=== PATIENT | male | born 1955 | race Native Hawaiian/Other Pacific Islander ===

== ENCOUNTER 2020-08-28 10:31 | Outpatient (REF) | payer OTHER, SELFPAY ==
--- NOTE | 2020-08-28 10:39 | XR_ITS ---
EXAMINATION: XR LUMBOSACRAL SPINE CLINICAL INFORMATION: Low back pain COMPARISON: July 24, 2008 TECHNIQUE: Three views of the lumbosacral spine. FINDINGS: There are 5 [id number] lumbar vertebra. No acute fracture, spondylolisthesis, or spondylolysis is appreciated. There is mild marginal spurring seen at multiple levels as well as calcification of the anterior longitudinal ligament with bridging at the L2-L3 level and prominent spur at the L4 level. Pedicles intact. There is mild narrowing of the L5-S1 disc space. No significant sacroiliac joint abnormality appreciated. There is noted to be marginal spurring within the lower thoracic spine. IMPRESSION: 1. No acute fracture, spondylolisthesis, or spondylolysis. 2. Lumbar spondylosis as described.
[2020-08-28 11:59] LABS: Alanine Aminotransferase 30 U/L (0-40); Albumin Level 4.4 g/dL (3.5-5.0); Alkaline Phosphatase 68 U/L (39-117); Anion Gap 14 (12-20); Aspartate Amino Transferase 27 U/L (5-37); Bilirubin Total 0.6 mg/dL (0.0-1.0); Blood Urea Nitrogen 22 mg/dL (9-16); Calcium 9.5 mg/dL (8.4-10.2); Carbon Dioxide 26 mmol/L (22-29); Chloride 103 mmol/L (96-108); Estimated Glomerular Filt Rate 47; Glucose Random 210 mg/dL (60-115); Potassium 4.5 mmol/l (3.3-5.1); Sodium 138 mmol/L (135-145); Total Protein 7.3 g/dL (6.5-8.0); Uric Acid 5.8 mg/dL (3.4-7.0)
== END 2020-08-28 10:32 | disposition home or self-care (01) ==
LOC: HO.HMGCX 10:31
PROVIDERS: PCP Nurse Practitioner Family; Referring Provider Student in an Organized Health Care Education/Training Program; Visit Provider Nurse Practitioner Family
DX: M10.071 Idiopathic gout, right ankle and foot (principal); M54.5 Low back pain
CPT/HCPCS: 72100; 80053; 84550

== ENCOUNTER → 2020-09-03 07:58 | Outpatient (BNVA) | payer OTHER, SELFPAY | PROVIDERS: PCP Nurse Practitioner Family; Referring Provider Nurse Practitioner Family; Visit Provider Student in an Organized Health Care Education/Training Program | DX: M1A.0710 Idiopathic chronic gout, right ankle and foot, without tophus (tophi) (principal); M19.079 Primary osteoarthritis, unspecified ankle and foot | CPT/HCPCS: 99214 ==

== ENCOUNTER 2020-10-02 10:05 | Outpatient (REF) | payer OTHER, SELFPAY ==
[2020-10-02 11:15] LABS: MANUAL DIFF FLAG NO
[2020-10-02 11:29] LABS: Basophils Percent Auto 0.5 % (0-2); Eosinophils Absolute Auto 0.2 X10*3/uL (0.0-0.4); Eosinophils Percent Auto 2.7 % (0-4); Hematocrit 45.6 % (42-52); Imm Gran Abs Auto 0.03 X10*3/uL (0.00-0.03); Imm Gran Pct Auto 0.4 % (0.0-0.4); Lymphocytes Absolute Auto 3.3 X10*3/uL (1.2-4.9); Lymphocytes Percent Auto 39.4 % (20-40); Mean Corpuscular HGB Conc 32.9 g/dl (31.0-36.0); Mean Corpuscular Volume 91.2 fL (80-98); Mean Platelet Volume 9.8 fL (9.4-12.4); Monocytes Absolute Auto 0.8 X10*3/uL (0.1-1.2); Monocytes Percent Auto 9.5 % (2-11); Neutrophils Percent Auto 47.5 % (45-73); Platelet Count 223 X10*3/uL (160-400); White Blood Count 8.3 X10*3/uL (4.8-10.8)
[2020-10-02 12:19] LABS: TSH reflex Free T4 0.58 mIU/mL (0.32-4.0)
[2020-10-02 12:30] LABS: Alanine Aminotransferase 59 U/L (0-40); Albumin Level 4.7 g/dL (3.5-5.0); Alkaline Phosphatase 71 U/L (39-117); Anion Gap 17 (12-20); Aspartate Amino Transferase 66 U/L (5-37); Blood Urea Nitrogen 18 mg/dL (9-16); Calcium 9.8 mg/dL (8.4-10.2); Carbon Dioxide 25 mmol/L (22-29); Chloride 98 mmol/L (96-108); Estimated Glomerular Filt Rate 48; Glucose Random 164 mg/dL (60-115); Potassium 5.1 mmol/l (3.3-5.1); Sodium 135 mmol/L (135-145); Total Protein 7.9 g/dL (6.5-8.0); Uric Acid 6.6 mg/dL (3.4-7.0)
== END 2020-10-02 10:06 | disposition home or self-care (01) ==
LOC: HO.HMGCLDS 10:05
PROVIDERS: Student in an Organized Health Care Education/Training Program; PCP Nurse Practitioner Family; Visit Provider Hospitalist
DX: M1A.0710 Idiopathic chronic gout, right ankle and foot, without tophus (tophi) (principal); R79.89 Other specified abnormal findings of blood chemistry; Z20.828 Contact with and (suspected) exposure to other viral communicable diseases
CPT/HCPCS: 36415; 80053; 84443; 84550; 85025

== ENCOUNTER 2020-10-02 10:08 | Outpatient (REF) | payer OTHER, SELFPAY | END 2020-10-02 10:09 | disposition home or self-care (01) | LOC: HO.LAB 10:08 | PROVIDERS: Visit Provider Hospitalist | DX: R79.89 Other specified abnormal findings of blood chemistry (principal); Z20.828 Contact with and (suspected) exposure to other viral communicable diseases | CPT/HCPCS: U0003 ==

== ENCOUNTER 2020-10-27 12:07 | Outpatient (REF) | payer OTHER, SELFPAY ==
[2020-10-27 14:18] LABS: Glucose Urine UA >=1000 MG/DL (NEG); Leukocyte Esterase Urine NEG (NEG); Nitrite Urine NEG (NEG); Urine Blood TRACE (NEG); Urine Ketones NEG (NEG); Urine Protein NEG (NEG-TRACE)
[2020-10-27 14:23] LABS: Appearance Urine CLEAR; Color Urine YELLOW
[2020-10-27 14:26] LABS: Alanine Aminotransferase 32 U/L (0-40); Albumin Level 4.5 g/dL (3.5-5.0); Alkaline Phosphatase 73 U/L (39-117); Anion Gap 16 (12-20); Anion Gap 17 (12-20); Aspartate Amino Transferase 41 U/L (5-37); Bilirubin Total 0.5 mg/dL (0.0-1.0); Blood Urea Nitrogen 21 mg/dL (9-16); Calcium 9.4 mg/dL (8.4-10.2); Calcium 9.5 mg/dL (8.4-10.2); Carbon Dioxide 24 mmol/L (22-29); Carbon Dioxide 25 mmol/L (22-29); Chloride 100 mmol/L (96-108); Chloride 101 mmol/L (96-108); Estimated Glomerular Filt Rate 54; Estimated Glomerular Filt Rate 56; Glucose Random 237 mg/dL (60-115); Potassium 4.7 mmol/l (3.3-5.1); Potassium 4.8 mmol/l (3.3-5.1); Sodium 136 mmol/L (135-145); Sodium 137 mmol/L (135-145); Total Protein 7.7 g/dL (6.5-8.0); Uric Acid 5.3 mg/dL (3.4-7.0)
[2020-10-27 14:41] LABS: Creatinine Urine 96.73 mg/dL; Total Protein Urine Random < 7 mg/dL (<12)
[2020-10-27 14:42] LABS: RBC Urine 0-2 /HPF (0); WBC Urine 0 /HPF (0-4)
== END 2020-10-27 12:08 | disposition home or self-care (01) ==
LOC: HO.HMGCLDS 12:07
PROVIDERS: Hospitalist; PCP Nurse Practitioner Family; Visit Provider Internal Medicine Nephrology
DX: R79.89 Other specified abnormal findings of blood chemistry (principal)
CPT/HCPCS: 80051; 80053; 81001; 82310; 82565; 84156; 84520; 84550

== ENCOUNTER 2021-01-29 08:51 | Outpatient (REF) | payer OTHER, SELFPAY ==
--- NOTE | ~2021-01-29 | XR_ITS ---
EXAMINATION: XR CHEST CLINICAL INFORMATION: Cough. COMPARISON: Chest 07/07/2020. TECHNIQUE: 2 views of the chest were obtained. FINDINGS: The lungs are well expanded and clear of acute pneumonic process. There is mild right lateral pleural thickening. The heart size and pulmonary vascularity is normal. There is moderate spondylosis. No gross bony abnormality seen. XR/XR chest 2V IMPRESSION: No acute cardiopulmonary process seen. There is moderate right lateral pleural thickening. A new finding from 03/07/2020. Moderate dorsal spine spondylosis.
[2021-01-29 12:05] LABS: Estimated Average Glucose 263 mg/dL; Hemoglobin A1c % 10.8 %
[2021-01-29 12:28] LABS: Alanine Aminotransferase 36 U/L (0-40); Albumin Level 4.5 g/dL (3.5-5.0); Alkaline Phosphatase 69 U/L (39-117); Anion Gap 15 (12-20); Aspartate Amino Transferase 37 U/L (5-37); Bilirubin Total 0.9 mg/dL (0.0-1.0); Blood Urea Nitrogen 21 mg/dL (9-16); Calcium 9.9 mg/dL (8.4-10.2); Carbon Dioxide 27 mmol/L (22-29); Chloride 100 mmol/L (96-108); Cholesterol 213 mg/dL; Estimated Glomerular Filt Rate 55; Glucose Fasting 306 mg/dL (60-99); HDL Cholesterol 62 mg/dL; LDL Cholesterol Calculated 128 mg/dl; Potassium 4.4 mmol/L (3.3-5.1); Sodium 138 mmol/L (135-145); Total Protein 7.5 g/dL (6.5-8.0); Triglycerides 119 mg/dL
[2021-01-29 12:32] LABS: TSH reflex Free T4 0.53 uIU/mL (0.32-4.0)
[2021-01-29 13:34] LABS: Creatinine Urine 109.93 mg/dL; Microalbum/Creatinine Ratio Ur 45.4 ug/mg cr
== END 2021-01-29 08:52 | disposition home or self-care (01) ==
LOC: HO.HMGCX 08:51
PROVIDERS: PCP Nurse Practitioner Family; Visit Provider Nurse Practitioner Family
DX: R05 Cough (principal); E11.9 Type 2 diabetes mellitus without complications
CPT/HCPCS: 36415; 71046; 80053; 80061; 82043; 83036; 84443

== ENCOUNTER → 2021-06-11 11:18 | Outpatient (BNVA) | payer SELFPAY | PROVIDERS: Visit Provider Physician Assistant Medical | DX: Z02.79 Encounter for issue of other medical certificate (principal) ==

== ENCOUNTER 2021-07-10 13:31 | Outpatient (REF) | payer MEDICARE, MEDICAID, SELFPAY | END 2021-07-10 13:32 | disposition home or self-care (01) | LOC: HO.LNP 13:31 | PROVIDERS: Visit Provider Hospitalist | DX: Z20.822 Contact with and (suspected) exposure to COVID-19 (principal) | CPT/HCPCS: U0003; U0005 ==

== ENCOUNTER 2021-12-08 07:55 | Outpatient (REF) | payer MEDICARE, MEDICAID, SELFPAY ==
[2021-12-08 11:34] LABS: Appearance Urine CLEAR; Color Urine YELLOW; Glucose Urine UA 250 MG/DL (NEG); Leukocyte Esterase Urine NEG (NEG); Nitrite Urine NEG (NEG); Specific Gravity - Urine 1.025 (1.005-1.025); UACC Culture Trigger NO; Urine Blood TRACE (NEG); Urine Ketones NEG (NEG); Urine Protein NEG (NEG-TRACE)
[2021-12-08 11:52] LABS: Estimated Average Glucose 183 mg/dL
[2021-12-08 11:56] LABS: Alanine Aminotransferase 32 U/L (0-40); Albumin Level 4.4 g/dL (3.5-5.0); Alkaline Phosphatase 57 U/L (39-117); Anion Gap 13 (12-20); Aspartate Amino Transferase 42 U/L (5-37); Bilirubin Total 0.4 mg/dL (0.0-1.0); Blood Urea Nitrogen 24 mg/dL (9-16); Calcium 10.2 mg/dL (8.4-10.2); Carbon Dioxide 26 mmol/L (22-29); Chloride 102 mmol/L (96-108); Cholesterol 218 mg/dL; Estimated Glomerular Filt Rate 51; Glucose Fasting 216 mg/dL (60-99); HDL Cholesterol 68 mg/dL; LDL Cholesterol Calculated 131 mg/dl; Potassium 4.4 mmol/L (3.3-5.1); Sodium 137 mmol/L (135-145); Total Protein 7.7 g/dL (6.5-8.0); Triglycerides 99 mg/dL
[2021-12-08 12:05] LABS: Prostate Specific Antigen Scr 5.98 ng/mL (<0.05-4.0); TSH reflex Free T4 0.81 uIU/mL (0.32-4.0)
[2021-12-08 12:13] LABS: RBC Urine 0-2 /HPF (0); WBC Urine 0 /HPF (0-4)
== END 2021-12-08 07:56 | disposition home or self-care (01) ==
LOC: HO.HMGCLDS 07:55
PROVIDERS: PCP Nurse Practitioner Family; Visit Provider Nurse Practitioner Family
DX: E11.9 Type 2 diabetes mellitus without complications (principal); Z12.5 Encounter for screening for malignant neoplasm of prostate
CPT/HCPCS: 36415; 80053; 80061; 81001; 83036; 84153; 84443

== ENCOUNTER 2022-02-08 08:02 | Outpatient (REF) | payer MEDICARE, MEDICAID, SELFPAY ==
[2022-02-08 12:10] LABS: Alanine Aminotransferase 23 U/L (0-40); Albumin Level 4.5 g/dL (3.5-5.0); Alkaline Phosphatase 51 U/L (39-117); Anion Gap 13 (12-20); Aspartate Amino Transferase 23 U/L (5-37); Bilirubin Total 0.6 mg/dL (0.0-1.0); Blood Urea Nitrogen 22 mg/dL (9-16); Calcium 9.6 mg/dL (8.4-10.2); Carbon Dioxide 28 mmol/L (22-29); Chloride 104 mmol/L (96-108); Estimated Glomerular Filt Rate 53; Glucose Random 142 mg/dL (60-115); Potassium 4.6 mmol/L (3.3-5.1); Sodium 140 mmol/L (135-145); Total Protein 7.5 g/dL (6.5-8.0); Uric Acid 5.4 mg/dL (3.4-7.0)
== END 2022-02-08 08:03 | disposition home or self-care (01) ==
LOC: HO.HMGCLDS 08:02
PROVIDERS: Visit Provider Nurse Practitioner Family
DX: M10.9 Gout, unspecified (principal)
CPT/HCPCS: 36415; 80053; 84550

== ENCOUNTER → 2022-02-09 07:49 | Outpatient (BNVA) | payer MEDICARE, MEDICAID, SELFPAY | PROVIDERS: Visit Provider Nurse Practitioner Family | DX: M1A.0710 Idiopathic chronic gout, right ankle and foot, without tophus (tophi) (principal); M19.079 Primary osteoarthritis, unspecified ankle and foot | CPT/HCPCS: 99212 ==

== ENCOUNTER 2022-04-26 08:09 | Outpatient (REF) | payer MEDICARE, MEDICAID, SELFPAY ==
[2022-04-26 11:43] LABS: MANUAL DIFF FLAG NO
[2022-04-26 11:53] LABS: Basophils Percent Auto 0.4 % (0-2); Eosinophils Absolute Auto 0.2 X10*3/uL (0.0-0.4); Eosinophils Percent Auto 2.6 % (0-4); Hematocrit 44.6 % (42.0-52.0); Hemoglobin 14.5 g/dl (14.0-18.0); Imm Gran Abs Auto 0.02 X10*3/uL (0.00-0.03); Imm Gran Pct Auto 0.3 % (0.0-0.4); Lymphocytes Absolute Auto 2.9 X10*3/uL (1.2-4.9); Lymphocytes Percent Auto 39.6 % (20-40); Mean Corpuscular HGB Conc 32.5 g/dl (31.0-36.0); Mean Corpuscular Hemoglobin 30.4 pg (27.0-33.0); Mean Corpuscular Volume 93.5 fL (80.0-98.0); Mean Platelet Volume 10.1 fL (9.4-12.4); Monocytes Absolute Auto 0.8 X10*3/uL (0.1-1.2); Monocytes Percent Auto 10.4 % (2-11); Neutrophils Absolute Auto 3.5 x10*3/uL (2.0-8.3); Neutrophils Percent Auto 46.7 % (45-73); Platelet Count 232 X10*3/uL (160-400); Red Blood Count 4.77 X10*6/uL (4.60-5.80); Red Cell Distribution Width 13.6 % (11.0-16.0); White Blood Count 7.4 X10*3/uL (4.8-10.8)
[2022-04-26 12:13] LABS: Anion Gap 13 (12-20); Blood Urea Nitrogen 21 mg/dL (9-16); Calcium 9.5 mg/dL (8.4-10.2); Carbon Dioxide 26 mmol/L (22-29); Chloride 104 mmol/L (96-108); Estimated Glomerular Filt Rate 56; Iron 86 mcg/dL (45-160); Percent Iron Saturation 24 % (15-50); Potassium 4.7 mmol/L (3.3-5.1); Sodium 138 mmol/L (135-145); Total Iron Binding Capacity 358 mcg/dL (228-428); Unsaturated Iron Binding 272 ug/dL
[2022-04-26 12:16] LABS: Appearance Urine CLEAR; Color Urine YELLOW; Glucose Urine UA NEG (NEG); Leukocyte Esterase Urine NEG (NEG); Nitrite Urine NEG (NEG); Specific Gravity - Urine 1.025 (1.005-1.025); UACC Culture Trigger NO; Urine Blood 1+ (NEG); Urine Ketones NEG (NEG); Urine Protein NEG (NEG-TRACE)
[2022-04-26 12:44] LABS: Total Protein Urine Random 16 mg/dL (<12)
[2022-04-26 12:56] LABS: WBC Urine 0 /HPF (0-4)
[2022-04-26 12:57] LABS: Mucus Urine 1+ /LPF
== END 2022-04-26 08:10 | disposition home or self-care (01) ==
LOC: HO.HMGCLDS 08:09
PROVIDERS: PCP Nurse Practitioner Family; Visit Provider Internal Medicine Nephrology
DX: N17.9 Acute kidney failure, unspecified (principal); I10 Essential (primary) hypertension
CPT/HCPCS: 36415; 80051; 81001; 81003; 82310; 82565; 83540; 84156; 84520; 85025

== ENCOUNTER → 2022-08-09 09:02 | Outpatient (BNVA) | payer MEDICARE, MEDICAID, SELFPAY | PROVIDERS: PCP Nurse Practitioner Family; Visit Provider Nurse Practitioner Family | DX: M1A.0710 Idiopathic chronic gout, right ankle and foot, without tophus (tophi) (principal); M19.079 Primary osteoarthritis, unspecified ankle and foot; M25.562 Pain in left knee; M54.50 Low back pain, unspecified | CPT/HCPCS: 99212 ==

== ENCOUNTER 2022-11-22 09:41 | Outpatient (REF) | payer MEDICARE, MEDICAID, SELFPAY ==
[2022-11-22 17:38] LABS: Urine Cytology See Pathology rpt
== END 2022-11-22 09:42 | disposition home or self-care (01) ==
LOC: HO.LAB 09:41
PROVIDERS: PCP Nurse Practitioner Family; Visit Provider Urology
DX: R31.29 Other microscopic hematuria (principal); R97.20 Elevated prostate specific antigen [PSA]; N32.0 Bladder-neck obstruction
CPT/HCPCS: 88112; 99202

== ENCOUNTER 2022-12-20 07:26 | Outpatient (REF) | payer MEDICARE, MEDICAID, SELFPAY ==
[2022-12-20 07:40] VITALS: BMI 35.6
[2022-12-20 07:41] VITALS: BP 126/67; PULSE 76; RESP 16; TEMP 36.2; O2SAT 98
--- NOTE | 2022-12-20 08:30 | W.PM.OPN ---
Operative Note Operative Note Date of Service: 12/20/22 Narrative: Preoperative diagnosis: Elevated PSA Postoperative diagnosis: Elevated PSA Procedure: 1. transrectal ultrasound measurement of prostate 2. transrectal ultrasound-guided pudendal nerve block 3. transrectal ultrasound-guided prostate biopsy 12 core Surgeon: Dr. Leroy Hale Anesthetic: Local Indications for procedure: Elevated PSA 5.9 Procedure: After informed consent was verified, the patient was brought into the procedure area and lay left-hand side down on the table. Patient identity confirmed. Perioperative antibiotics confirmed. Safety pause time out performed. LUIS CARLOS performed to dilate rectal sphincter Iodine 10cc with Gel was placed per rectum Ultrasound probe was placed per rectum The prostate was measured in 3 dimensions Total volume equals 40 gm No cystic structures were noted calcifications were noted at the surgical margin The prostate was otherwise homogeneous in nature An ultrasound-guided pudendal nerve block was performed using 10 cc of 1% lidocaine. 8 cc was placed at the base and 2 cc of the apex. A 12 core biopsy was performed with 6 cores each side. Two cores were taken at the apex, mid and base. Cores were spaced between lateral and medial. He tolerated the procedure well. Was able to ambulate to bathroom after 5 minutes. Printed instructions regarding antibiotic use and common side effects such as low-grade temperature, potential infection and bleeding were given Pathology: 12 core prostate biopsy.
[2022-12-20 08:51] VITALS: BP 127/74; PULSE 92; RESP 16; O2SAT 97
== END 2022-12-20 07:27 | disposition home or self-care (01) ==
LOC: HO.MS 07:26
PROVIDERS: PCP Nurse Practitioner Family; Visit Provider Urology
PROC: (CPT 55700; principal; 2022-12-20 08:00)
DX: R97.20 Elevated prostate specific antigen [PSA] (principal); C61 Malignant neoplasm of prostate; N42.31 Prostatic intraepithelial neoplasia
CPT/HCPCS: 55700; 76942; 88305; 88344

== ENCOUNTER → 2022-12-27 11:13 | Outpatient (BNVA) | payer MEDICARE, MEDICAID, SELFPAY | PROVIDERS: PCP Nurse Practitioner Family; Visit Provider Urology | DX: N39.0 Urinary tract infection, site not specified (principal); C61 Malignant neoplasm of prostate | CPT/HCPCS: Q3014 ==

== ENCOUNTER → 2023-01-16 10:44 | Outpatient (REF) | payer MEDICARE, MEDICAID, SELFPAY ==
--- NOTE | ~2023-01-16 | NM_ITS ---
EXAMINATION: NM BONE SCAN OF THE WHOLE BODY CLINICAL INFORMATION: Prostate cancer. Evaluate for bone metastasis. COMPARISON: Chest x-ray 01/29/2021 TECHNIQUE: Multiple gamma scintillation camera images of the whole body were performed 3 hours following the intravenous administration of 38 mCi Tc-99m MDP. FINDINGS: In the head, no abnormal activity seen. In the thoracic cage and upper extremities, mild degenerative changes bilateral supraclavicular joints. No additional abnormal activity seen in thoracic cage or upper extremities. In the spine, there is mild increased activity seen along the costovertebral junctions slightly greater on the right side from T4 through T11 vertebrae on the right and left T8 and T9 vertebrae. In the pelvis, no abnormal activity seen. In the lower extremities, there is focal increased activity seen in the left mid tibia, likely a stress fracture. Mild increased activity seen in bilateral ankle joints likely degenerative arthritis. No other definite bony abnormalities are noted. The urinary bladder and faint visualization of both kidneys are noted. NM/NM bone scan whole body IMPRESSION: No abnormal metabolic activity seen to suspect any metastatic bone disease. Mild degenerative arthritic changes bilateral ankles and AC joints. Likely stress fracture left mid tibia. Moderate spondylosis mid dorsal spine.
== END ==
LOC: HO.NUCMED 10:44
PROVIDERS: PCP Nurse Practitioner Family; Visit Provider Urology
DX: C61 Malignant neoplasm of prostate (principal); C79.51 Secondary malignant neoplasm of bone; N39.0 Urinary tract infection, site not specified
CPT/HCPCS: 78306; A9503

== ENCOUNTER 2023-01-25 09:02 | Outpatient (REF) | payer MEDICARE, MEDICAID, SELFPAY ==
[2023-01-25 11:59] LABS: Blood Urea Nitrogen 16 mg/dL (9-16); Estimated Glomerular Filt Rate 57
== END 2023-01-25 09:03 | disposition home or self-care (01) ==
LOC: HO.HMGCLDS 09:02
PROVIDERS: PCP Nurse Practitioner Family; Visit Provider Nurse Practitioner Family
DX: M1A.0710 Idiopathic chronic gout, right ankle and foot, without tophus (tophi) (principal)
CPT/HCPCS: 36415; 82565; 84520; 84550

== ENCOUNTER → 2023-01-27 09:10 | Outpatient (BNVA) | payer MEDICARE, MEDICAID, SELFPAY | PROVIDERS: PCP Nurse Practitioner Family; Visit Provider Nurse Practitioner Family | DX: M1A.0710 Idiopathic chronic gout, right ankle and foot, without tophus (tophi) (principal); M19.079 Primary osteoarthritis, unspecified ankle and foot | CPT/HCPCS: 99212 ==

== ENCOUNTER → 2023-02-15 14:30 | Outpatient (BNVA) | payer MEDICARE, MEDICAID, SELFPAY | PROVIDERS: PCP Nurse Practitioner Family; Visit Provider Urology | DX: C61 Malignant neoplasm of prostate (principal); N40.1 Benign prostatic hyperplasia with lower urinary tract symptoms; N13.8 Other obstructive and reflux uropathy | CPT/HCPCS: 99212 ==

== ENCOUNTER 2023-02-28 08:06 | Outpatient (REF) | payer MEDICARE, MEDICAID, SELFPAY ==
--- NOTE | ~2023-02-28 | XR_ITS ---
EXAMINATION: XR FOOT, RIGHT CLINICAL INFORMATION: Pain in the right foot COMPARISON: X-ray of the right foot/toes 05/13/2020 TECHNIQUE: AP, lateral, and oblique views of the right foot. FINDINGS: First Metatarsophalangeal Joint: There is mild hallux valgus. Small marginal osteophytes involving the 1st metatarsophalangeal joint and hallux sesamoid joints. This is not significantly changed. The remaining bones, joints soft tissues are unremarkable. XR/XR foot RT 2V IMPRESSION: Mild degenerative changes of the 1st metatarsophalangeal joint, unchanged.
== END 2023-02-28 08:07 | disposition home or self-care (01) ==
LOC: HO.XRAY 08:06
PROVIDERS: PCP Nurse Practitioner Family; Visit Provider Nurse Practitioner Family
DX: M79.671 Pain in right foot (principal)
CPT/HCPCS: 73620

== ENCOUNTER → 2023-03-01 09:03 | Outpatient (BNVA) | payer MEDICARE, MEDICAID, SELFPAY | PROVIDERS: PCP Nurse Practitioner Family; Visit Provider Nurse Practitioner Family | DX: M1A.0710 Idiopathic chronic gout, right ankle and foot, without tophus (tophi) (principal); M19.071 Primary osteoarthritis, right ankle and foot | CPT/HCPCS: 99212 ==

== ENCOUNTER → 2023-03-22 14:39 | Outpatient (BNVA) | payer MEDICARE, MEDICAID, SELFPAY | PROVIDERS: PCP Nurse Practitioner Family; Visit Provider Urology | DX: C61 Malignant neoplasm of prostate (principal) | CPT/HCPCS: 96402; 99212; J9217 ==

== ENCOUNTER 2023-06-05 05:55 | Day surgery (SDC) | payer MEDICARE, MEDICAID, SELFPAY ==
[2023-05-31 11:47] VITALS: BMI 45.7
--- NOTE | 2023-06-02 10:14 | P.CONAN_ITS ---
Documented by User: Alanna Ceballos NP 06/02/23 10:14 HPI - Anesthesia Eval Consult details Narrative: 68yo M for Visicoil Insertion, Space OAR PMFSH Active Problems Active Problems: All Active Problems (Updated 02/15/23 @ 15:24 by Leroy Hale MD) Prostate cancer (Acute) Complicated urinary tract infection (Acute) Bladder outlet obstruction (Acute) Physical exam (Acute) Elevated PSA (Acute) Exposure to COVID-19 virus (Acute) Pleural thickening (Acute) Screening PSA (prostate specific antigen) (Acute) Diabetes (Acute) Cough (Acute) Elevated fasting blood sugar (Acute) Viral syndrome (Acute) Encounter for screening laboratory testing for COVID-19 virus (Acute) Dizziness (Acute) Arthritis of first MTP joint (Acute) Gout of right foot (Acute) Elevated serum creatinine (Acute) Lower back pain (Acute) Right hip pain (Acute) Past Medical History Medical History (Updated 06/05/23 @ 07:22 by Joselin Oneill MD) DAKOTA (acute kidney injury) Anxiety Arthritis of first MTP joint C. difficile diarrhea COVID-19 Elevated serum creatinine GERD (gastroesophageal reflux disease) Gout of right foot HTN (hypertension) Lower back pain JACINDA (obstructive sleep apnea) Family History Family History Father No problems noted. Mother No problems noted. Sister Cancer Sister No problems noted. Brother Diabetes mellitus Brother No problems noted. Brother No problems noted. Brother No problems noted. Brother No problems noted. Daughter No problems noted. Son No problems noted. Son No problems noted. Surgical History Surgical History (Updated 06/05/23 @ 07:26 by Joselin Oneill MD) H/O inguinal hernia repair History of hernia repair Hx of umbilical hernia repair Social History Social History Household Members: Spouse Housing: House Alcohol intake: current Alcohol intake frequency: holidays/special occasions only Alcohol type: hard liquor Patient Tobacco Use Status: Former Tobacco user Years Smoked: 20 yrs e-Cigarette/Vaping Use: Never Used Second Hand Smoke Exposure: No Use of substances other than those prescribed or required for medical reasons: No Are you DNR?: No Advance Directives: No Advance Directives Information Provided: Yes service: No Current occupational status: retired Cognitive needs: No Hearing needs: No Vision needs: No Meds Allergies Allergy/AdvReac Type Severity Reaction Status Date / Time No Known Allergies Allergy Verified 03/22/23 15:36 [No Known Allergies*] Home Medications Medication Instructions Recorded Confirmed Last Taken Type indomethacin 50 mg capsule 50 mg PO TID PRN Pain 02/09/22 06/05/23 Unknown History Exam Exam Date and Time: June 02, 2023 1014 Height,Weight and Vital Signs: Height 5 ft 1 in Weight 109.769 kg Pertinent Lab Results Pertinent Lab Results: Laboratory Tests 01/25/23 09:07 BUN 16 Creatinine 1.26 Assessment and Plan Assessment Anesthesia Assessment: Chart Reviewed Documented by User: Joselin Oneill MD 06/05/23 07:30 [facility] Active Problems Active Problems: All Active Problems (Updated 06/05/23 @ 07:00 by Joselin Oneill MD) Prostate cancer (Acute) Complicated urinary tract infection (Acute) Bladder outlet obstruction (Acute) Physical exam (Acute) Elevated PSA (Acute) Exposure to COVID-19 virus (Acute) Pleural thickening (Acute) Screening PSA (prostate specific antigen) (Acute) Diabetes (Acute) Cough (Acute) Elevated fasting blood sugar (Acute) Viral syndrome (Acute) Encounter for screening laboratory testing for COVID-19 virus (Acute) Dizziness (Acute) Arthritis of first MTP joint (Acute) Gout of right foot (Acute) Elevated serum creatinine (Acute) Lower back pain (Acute) Right hip pain (Acute) Past Medical History Medical History (Updated 06/05/23 @ 07:22 by Joselin Oneill MD) DAKOTA (acute kidney injury) Anxiety Arthritis of first MTP joint C. difficile diarrhea COVID-19 Elevated serum creatinine GERD (gastroesophageal reflux disease) Gout of right foot HTN (hypertension) Lower back pain JACINDA (obstructive sleep apnea) Family History Family History Father No problems noted. Mother No problems noted. Sister Cancer Sister No problems noted. Brother Diabetes mellitus Brother No problems noted. Brother No problems noted. Brother No problems noted. Brother No problems noted. Daughter No problems noted. Son No problems noted. Son No problems noted. Family history of problems with anesthesia: No Surgical History Surgical History (Updated 06/05/23 @ 07:26 by Joselin Oneill MD) H/O inguinal hernia repair History of hernia repair Hx of umbilical hernia repair History of Problems with Anesthesia: No Social History Social History Household Members: Spouse Housing: House Alcohol intake: current Alcohol intake frequency: holidays/special occasions on ly Alcohol type: hard liquor Patient Tobacco Use Status: Former Tobacco user Years Smoked: 20 yrs e-Cigarette/Vaping Use: Never Used Second Hand Smoke Exposure: No Use of substances other than those prescribed or required for medical reasons: No Are you DNR?: No Advance Directives: No Advance Directives Information Provided: Yes service: No Current occupational status: retired Cognitive needs: No Hearing needs: No Vision needs: No Meds Allergies Allergy/AdvReac Type Severity Reaction Status Date / Time No Known Allergies Allergy Verified 03/22/23 15:36 [No Known Allergies*] Home Medications Medication Instructions Recorded Confirmed Last Taken Type indomethacin 50 mg capsule 50 mg PO TID PRN Pain 02/09/22 06/05/23 Unknown History Exam Height,Weight and Vital Signs: Height 5 ft 1 in Weight 109.769 kg Vital Signs Temp Pulse Resp BP Pulse Ox O2 Del Method 06/05/23 06:50 97.0 F 72 18 114/64 95 Room Air Pertinent Lab Results Pertinent Lab Results: Laboratory Tests 01/25/23 09:07 BUN 16 Creatinine 1.26 Lab Results 06/05/23 Range/Units 06:42 POC Glucose 147 H (60-115) mg/dL Airway Mallampati Class: III TM Dist: >3cm Neck ROM: Full Partial: Upper Loose/Missing/Broken Teeth: Yes (Many missing and some broken bottom) Heart: RRR Lungs: CTAB Assessment and Plan Assessment Anesthesia Assessment: Anesthesia Plan Discussed Final Anesthetic Review Family History of Problems with Anesthesia: No History of Problems with Anesthesia: No NPO: Yes ASA Class: III Final Preanesthetic Review: No Changes in Pt Med Stat, Meds/Allgs Chart Reviewed, Consent Obtained/Reviewed and Anes Risks/Benef Reviewed Patient Risk: Intermediate Procedure Risk: Low Assessment/Block/Sedation in SS: Assess/Block/Sedation-SS Anesthetic Plan Anesthetic Plan: GA Disposition: Standard PACU
[2023-06-05 06:44] VITALS: BMI 34.9
[2023-06-05 06:49] LABS: Glucose, Whole Blood 147 mg/dL (60-115)
[2023-06-05 06:50] VITALS: BP 114/64; PULSE 72; RESP 18; TEMP 36.1; O2SAT 95
[2023-06-05] MEDS: Lactated Ringers 1,000 ML 100 ML IVCONT (06:54)
--- NOTE | 2023-06-05 07:42 | MHC.SHP ---
Pre-Procedural Eval Section A Date of Service: 06/05/23 The patient is an INPATIENT: No Changes since office visit: No Cold of Flu in the past 2 weeks, No New Medical Problems, No Changes in Medication and No Patient answered all questions The History & Physical has been completed within 30 days and I have reviewed it.: No Section B Chief Complaint: Malignant neoplasm of prostate Relevant Social History: None Present Medications: see Short Stay Collaborative assessment Medical History: No relevant PMH History of Previous Operations: No relevant previous surgery Allergies: Allergies Allergy/AdvReac Type Severity Reaction Status Date / Time No Known Allergies Allergy Verified 03/22/23 15:36 [No Known Allergies*] Review of Systems Sugical H&P ROS: Negative: Constitution, Cardiovascular, Respiratory, Neurological, Psychiatric, Hem-Onc, Allergic/Immunologic, Gastrointestinal, Genitourinary, Musculoskeletal, Integumentary, Endocrine and Eyes/Ears/Nose/Throat Exam Surgical H&P Exam: Normal: HEENT, Normal: Heart, Normal: Lungs, Normal: Extremities, Normal: Abdomen, Normal: Skin and Normal: Neurological Plan Diagnosis/Plan: Unchanged (prostate cancer space oar placement) I have reviewed the history and physical and performed a pertinent physical examination on my patient. No changes have occurred unless specified. Time Spent With Patient Time: Total time managing care of this patient today ____ minutes.
[2023-06-05 08:34] VITALS: BP 106/65; PULSE 65; RESP 16; TEMP 36.4; O2SAT 96
[2023-06-05 08:39] VITALS: BP 103/69; PULSE 69; RESP 16; O2SAT 96
--- NOTE | 2023-06-05 08:43 | P.OP_ITS ---
Operative Note Operative Note Date of Service: 06/05/23 Narrative: Preoperative diagnosis: Prostate cancer Postoperative diagnosis: Prostate cancer Procedure: 1. Transrectal ultrasound-guided perineal visicoil marker seed placement 2. Transrectal ultrasound-guided perineal SpaceOAR gel placement Surgeon: Dr. Leroy Hale Anesthetic: Sedation Indications for procedure: Prostate Cancer Procedure: After informed consent was verified, the patient was brought into the operating room and anesthesia was performed per protocol. The patient was placed in a modified dorsal lithotomy position. Gel was placed per rectum Ultrasound probe was placed per rectum. The prostate was visualized in sagittal and transverse dimensions. Local anesthetic was infiltrated in the perineal area using 10 cc of lidocaine Visicoil seed markers were placed in a transperineal fashion using ultrasound guidance 1 on the right - 1 toward mid gland. 1 on the left at mid gland. The purpose is for target triangulation. The 2nd part of the procedure was placement of SpaceOAR gel to allow consolidation for radiation delivery. The kit was prepared on the backtable with assembly of the 2 part solution and syringe delivery system. The delivery needle was advanced bevel down in the midline under ultrasound guidance to the apex of the prostate. It was advanced in the plane the prostate from the rectum to the midpoint of the prostate. Location was determined using sagittal and transverse imaging. At the midpoint of the prostate 1 cc of saline was placed to confirm needle position. Further injection saline was placed to confirm spread toward the base of the prostate. Position was confirmed and needle confirmed to be free from tenting of the rectum. With the needle in the confirmed position 10 cc of gel mixture was injected. This was perfformed over a target time of 15-20 seconds to allow for adequate sp read.. Good separation was seen of the rectum from the prostate space running in the midline from the base toward the apex of the prostate. Following completion of the procedure the probe was removed from the rectum. He tolerated the procedure well. He was extubated in the operating room and transferred in stable condition to the recovery area. Pathology none Drains none
[2023-06-05 08:44] VITALS: BP 113/73; PULSE 67; RESP 16; O2SAT 96
[2023-06-05 08:49] VITALS: BP 111/75; PULSE 62; RESP 16; O2SAT 96
[2023-06-05] MEDS: Acetaminophen 325 MG TABLET 975 MG PO (08:58)
[2023-06-05 09:04] VITALS: BP 113/68; PULSE 62; RESP 18; TEMP 36.2; O2SAT 98
== END 2023-06-05 09:40 | disposition home or self-care (01) ==
PROVIDERS: PCP Nurse Practitioner Family; Visit Provider Urology
PROC: (CPT 55876; principal; 2023-06-05 07:30)
PROC: (CPT 55876; 2023-06-05 07:30)
DX: C61 Malignant neoplasm of prostate (principal); I10 Essential (primary) hypertension
CPT/HCPCS: 55876; 55874; 82947; A4648; C1889; J1100; J1956; J2250; J2405; J3010

== ENCOUNTER → 2023-06-05 05:55 | Outpatient (BNV) | payer MEDICARE, MEDICAID, SELFPAY | PROVIDERS: PCP Nurse Practitioner Family; Visit Provider Urology | DX: C61 Malignant neoplasm of prostate (principal) | CPT/HCPCS: 55874; 55876 ==

== ENCOUNTER 2023-07-07 14:15 | Outpatient (AMB) | payer MEDICARE, MEDICAID, SELFPAY ==
--- NOTE | 2023-07-07 14:22 | A.OFFVIS_ITS ---
Intake Intake Visit Reasons: 3 month (space oar+gold seed) Intake Note: Patient presents today for a follow-up Post Op: Meds- Finasteride & Terasozin Allergies to Antibiotic- No Known Allergies Blood Thinner- None Field Support Rep Required: No Accompanied by: Self / Same As Patient Allergies No Known Allergies [No Known Allergies*] Allergy (Verified 03/22/23 15:36) PFSH Medical History DAKOTA (acute kidney injury) Anxiety Arthritis of first MTP joint C. difficile diarrhea COVID-19 Elevated serum creatinine GERD (gastroesophageal reflux disease) Gout of right foot HTN (hypertension) Lower back pain JACINDA (obstructive sleep apnea) Surgical History H/O inguinal hernia repair History of hernia repair Hx of umbilical hernia repair Family History Father No problems noted. Mother No problems noted. Sister Cancer Sister No problems noted. Brother Diabetes mellitus Brother No problems noted. Brother No problems noted. Brother No problems noted. Brother No problems noted. Daughter No problems noted. Son No problems noted. Son No problems noted. Social History Household Members: Spouse Housing: House Alcohol intake: current Alcohol intake frequency: holidays/special occasions only Alcohol type: hard liquor Patient Tobacco Use Status: Former Tobacco user Years Smoked: 20 yrs e-Cigarette/Vaping Use: Never Used Second Hand Smoke Exposure: No service: No Current occupational status: retired Cognitive needs: No Hearing needs: No Vision needs: No Coding Diagnoses
--- NOTE | 2023-07-07 14:29 | MHC.OFFVIS ---
Intake Intake Visit Reasons: 3 month (space oar+gold seed) Allergies No Known Allergies [No Known Allergies*] Allergy (Verified 03/22/23 15:36) HPI HPI Comments History of Present Illness Details Leonor very pleasant [place] male. He is a patient of Dr. Ward. He is seen for the following urologic conditions - prostate cancer - lower urinary tract symptoms Prior SpaceOAR placed Starting to have ED tadalafil given 3 month f/u Radiation planned starting this week Encouraged fluids Lower urinary tract symptoms Urgency and frequency Nocturia x3 Progressive LUIS CARLOS nodule right apex Prostate Cancer - unfavorable intermediate, low volume, clinically localized GnRH 04/04 PSA 2018 5.4 prior negative biopsy, 12/05 5.9 01/05 - 4+3=7 (right mid medial 15%, right apex medial 70%) 3+4=7 (left apex medial 30%) 3+3=6 (left mid medial 5%) Tumor quantitation: Number cores positive: 4 Total number of cores: 12 % of tissue involved: 10% of all tissue examined Periprostatic fat inv.:Not dalia ntified Seminal vesicle inv.: Not identified Perineural inv.: Present LVI: Not identified Staging - 02/02 MRI PI-RADS 4 right apical 1 cm lesion, no evidence ARLEEN - 02/02 bone scan negative PFSH Medical History DAKOTA (acute kidney injury) Anxiety Arthritis of first MTP joint C. difficile diarrhea COVID-19 Elevated serum creatinine GERD (gastroesophageal reflux disease) Gout of right foot HTN (hypertension) Lower back pain JACINDA (obstructive sleep apnea) Surgical History H/O inguinal hernia repair History of hernia repair Hx of umbilical hernia repair Family History Father No problems noted. Mother No problems noted. Sister Cancer Sister No problems noted. Brother Diabetes mellitus Brother No problems noted. Brother No problems noted. Brother No problems noted. Brother No problems noted. Daughter No problems noted. Son No problems noted. Son No problems noted. Social History Household Members: Spouse Housing: House Alcohol intake: current Alcohol intake frequency: holidays/special occasions only Alcohol type: hard liquor Patient Tobacco Use Status: Former Tobacco user Years Smoked: 20 yrs e-Cigarette/Vaping Use: Never Used Second Hand Smoke Exposure: No service: No Current occupational status: retired Cognitive needs: No Hearing needs: No Vision needs: No Review of Systems Const Denies chills and Denies fever(s) Card Reports no additional complaints and Denies syncope Resp Denies cough GI Denies abdominal pain and Denies heartburn Reports as per HPI and Denies change in libido Neuro Denies syncope Psych Denies change in libido Endo Denies change in libido Physical Exam Const General: cooperative, healthy appearing, comfortable and no acute distress Orientation/consciousness: patient oriented x3 HEENT Face and sinus: Yes normal facial exam Mouth: moist mucous membranes Neck Neck: Yes normal visual inspection, Yes full ROM and Yes trachea midline Chest Chest palpation & inspection: normal inspection of the chest Resp Effort & Inspection: normal respiratory effort, able to speak in complete sentences and no respiratory distress GI Inspection: Yes normal to inspection Back/Spine/Pelvis Cervical Spine: normal cervical lordosis Thoracic/Lumbar Spine: thoracic and lumbar spine normal to inspection Skin General skin exam: no rashes or lesions noted Neuro General: patient oriented x3, gait normal, tone normal and moves all extremities Extrem General: Yes normal to inspection and Yes capillary refill normal Assessment & Plan Assessment & Plan (1) Prostate cancer: Comment: 01/05 Gl 4+3, unfavorable intermediate, clinically localized Code(s): C61 - Malignant neoplasm of prostate (2) Erectile dysfunction: Code(s): N52.9 - Male erectile dysfunction, unspecified Plan Three month follow-up Medications: New tadalafil 5 mg PO DAILY 90 tabs 1RF sexual activity 90 days N52.01 - Erectile dysfunction due to arterial insufficiency, N52.9 - Male erectile dysfunction, unspecified Patient Instructions: Imaging studies, laboratory and physical exam results were discussed and reviewed in detail. No major barriers to patient understanding were identified. An opportunity to ask questions regarding the treatment plan was provided. All questions were answered. The patient expressed understanding and agreement with the above treatment plan. The patient is aware they should contact our office by phone for worsening of their current condition or the appearance of new urologic symptoms. Compliance is encouraged with any medications and followup testing that is ordered. It is a privilege to participate in the urologic care of your patient. If you have any questions or concerns regarding treatment for the above conditions, or other urologic issues, please do not hesitate to contact me. The office telephone contact is [phone]. This note is constructed using voice recognition software. While every effort has been made to ensure accuracy order selector errors may have been included. Yours sincerely, Dr Leroy Hale MD, [facility] - Urology Providers of Expert, Compassionate Care for the Genitourinary System Coding Level of Care Code Est Pt Level 4 (84049) Diagnoses Prostate cancer C61 Erectile dysfunction N52.9
== END 2023-07-07 14:30 | disposition home or self-care (01) ==
PROVIDERS: PCP Nurse Practitioner Family; Visit Provider Urology
DX: C61 Malignant neoplasm of prostate (principal); N52.9 Male erectile dysfunction, unspecified; Z13.89 Encounter for screening for other disorder
CPT/HCPCS: 99214

== ENCOUNTER → 2023-07-07 14:15 | Outpatient (BNVA) | payer MEDICARE, MEDICAID, SELFPAY | PROVIDERS: Visit Provider Urology | DX: C61 Malignant neoplasm of prostate (principal); N52.9 Male erectile dysfunction, unspecified | CPT/HCPCS: 81003; 99212 ==

== ENCOUNTER 2023-10-11 11:10 | Outpatient (AMB) | payer MEDICARE, MEDICAID, SELFPAY ==
--- NOTE | 2023-10-11 11:10 | A.OFFVIS_ITS ---
Intake Intake Visit Reasons: 3m follow up Intake Note: Patient is present for Follow Up Urology Med:Finasteride, Terazosin Antibiotic Allergy: None Blood Thinner: None Computer Hardware Engineer Required: No Accompanied by: Self / Same As Patient Allergies No Known Allergies [No Known Allergies*] Allergy (Verified 10/11/23 11:11) HPI HPI Comments History of Present Illness Details Leonor very pleasant Guyanese male. He is a patient of Dr. Ward. He is seen for the following urologic conditions - prostate cancer - lower urinary tract symptoms - erectile dysfunction Three month follow-up labs Does have some urgency frequency Continue with finasteride, terazosin, tadalafil Lower urinary tract symptoms Urgency and frequency Nocturia x3 Progressive Prostate Cancer - unfavorable intermediate, low volume, clinically localized, Grade Group 3, GnRH 04/04 PSA 2018 5.4 prior negative biopsy, 12/05 5.9 06/04 EXBRT with GnRH with Space Oar 01/05 - 4+3=7 (right mid medial 15%, righ t apex medial 70%) 3+4=7 (left apex medial 30%) 3+3=6 (left mid medial 5%) Tumor quantitation: Number cores positive: 4 Total number of cores: 12 % of tissue involved: 10% of all tissue examined Periprostatic fat inv.:Not dalia ntified Seminal vesicle inv.: Not identified Perineural inv.: Present LVI: Not identified Staging - 02/02 MRI PI-RADS 4 right apical 1 cm l esion, no evidence ARLEEN - 02/02 bone scan negative Erectile Dysfunction PFSH Medical History DAKOTA (acute kidney injury) Anxiety Arthritis of first MTP joint C. difficile diarrhea COVID-19 Elevated serum creatinine GERD (gastroesophageal reflux disease) Gout of right foot HTN (hypertension) Lower back pain JACINDA (obstructive sleep apnea) Surgical History H/O inguinal hernia repair History of hernia repair Hx of umbilical hernia repair Family History Father No problems noted. Mother No problems noted. Sister Cancer Sister No problems noted. Brother Diabetes mellitus Brother No problems noted. Brother No problems noted. Brother No problems noted. Brother No problems noted. Daughter No problems noted. Son No problems noted. Son No problems noted. Social History Household Members: Spouse Housing: House Alcohol intake: current Alcohol intake frequency: holidays/special occasions only Alcohol type: hard liquor Patient Tobacco Use Status: Former Tobacco user Years Smoked: 20 yrs e-Cigarette/Vaping Use: Never Used Second Hand Smoke Exposure: No service: No Current occupational status: retired Cognitive needs: No Hearing needs: No Vision needs: No Review of Systems Const All systems reviewed & are unremarkable except as noted in HPI and below Reports no additional complaints Resp Reports no additional complaints GI Reports no additional complaints Reports as per HPI Musc Reports no additional complaints Physical Exam Telemedicine evaluation Appropriate responses Regular breathing rate and rhythm HEENT Head: Yes normal to inspection Ears: hearing grossly normal bilaterally Eyes General: appearance normal, both eyes and all related structures Neck Neck: Yes normal visual inspection Chest Chest palpation & inspection: normal inspection of the chest Resp Effort & Inspection: normal respiratory effort and able to speak in complete sentences Assessment & Plan Assessment & Plan (1) Prostate cancer: Comment: 01/05 Gl 4+3, unfavorable intermediate, clinically localized Code(s): C61 - Malignant neoplasm of prostate (2) Erectile dysfunction: Code(s): N52.9 - Male erectile dysfunction, unspecified Qualifiers: Erectile dysfunction type: vasculogenic Vasculogenic erectile dysfunction 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 No major barriers to patient understanding were identified. An opportunity to ask questions regarding the treatment plan was provided. All questions were answered. The patient expressed understanding and agreement with the above treatment plan. The patient is aware they should contact our office by phone for worsening of their current condition or the appearance of new urologic symptoms. Compliance is encouraged with any medications and followup testing that is ordered. It is a privilege to participate in the urologic care of your patient. If you have any questions or concerns regarding treatment for the above conditions, or other urologic issues, please do not hesitate to contact me. The office teleph one contact is [phone]. This note is constructed using voice recognition software. While every effort has been made to ensure accuracy senior clinical study manager errors may have been included. Yours sincerely, Dr Leroy Hale MD, [facility] - Urology Providers of Expert, Compassionate Care for the Genitourinary System Telehealth Telehealth Location of provider rendering services: practice address Location of patient: address on file Patient Identification confirmed using: Name, : Yes Telehealth method: voice only Patient verbally consented to treatment: Yes Patient verbally consented to billing insurance company: Yes Patient informed of any privacy concerns related to visit: Yes Coding Level of Care Code Tele Est Pt Level 3 (50223) Diagnoses Prostate cancer C61 Combined arterial insufficiency and corporo-venous occlusive erectile dysfunction N52.03 Erectile dysfunction type: vasculogenic Vasculogenic erectile dysfunction 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
== END 2023-10-11 11:52 | disposition home or self-care (01) ==
LOC: HO.HUSH 11:10
PROVIDERS: PCP Nurse Practitioner Family; Visit Provider Urology
DX: C61 Malignant neoplasm of prostate (principal); N52.03 Combined arterial insufficiency and corporo-venous occlusive erectile dysfunction
CPT/HCPCS: 99442

== ENCOUNTER → 2023-10-11 11:10 | Outpatient (BNVA) | payer MEDICARE, MEDICAID, SELFPAY | PROVIDERS: PCP Nurse Practitioner Family; Visit Provider Urology ==

== ENCOUNTER 2023-10-17 13:28 | Outpatient (AMB) | payer MEDICARE, MEDICAID, SELFPAY ==
--- NOTE | 2023-10-17 13:29 | A.OFFVIS_ITS ---
Intake Vital Signs 10/17/23 13:31 Height 5 ft 11 in Weight 253 lb BMI 35.3 BP 110/78 Blood Pressure Location Rt brachial Position Sitting Pulse 72 Pulse Source Pulse Oximeter Pulse Oximetry (%) 96 Oxygen Delivery Method Room Air Intake Visit Reasons: awv Allergies No Known Allergies [No Known Allergies*] Allergy (Verified 10/11/23 11:11) Medication List - Last Reconciled 10/17/23 by KEISHA Lezama-FÉLIX alcohol swabs 1 pad topical BID allopurinol 300 mg PO DAILY alprazolam 1 mg PO BID PRN 4 days atorvastatin 10 mg PO BEDTIME 100 days blood sugar diagnostic ([employer] Verio test strips) TID testing blood-glucose meter ([employer] Verio Meter) TID testing colchicine 0.6 mg PO DAILY 30 days finasteride 5 mg PO DAILY 90 days indomethacin 50 mg PO TID PRN lancets ([employer] Delica Lancets) TID testing lisinopril 10 mg PO DAILY 90 days metformin 500 mg PO BID metoprolol tartrate 12.5 mg (1/2 x 25 mg) PO BID omeprazole 20 mg PO DAILY tadalafil 5 mg PO DAILY 90 days terazosin 5 mg PO BEDTIME 30 days tramadol 50 mg PO DAILY PRN 14 days Do you need a note to return to daycare/school/sports/work: No HPI awv HPI Details Pt is here for an AWV. Denies fever, chills, and dizziness. Anderson of care not filled out. PPP will be scanned in chart and copy will be given to pt. pt was informed he can get his shingles vaccine at the pharmacy. HPI Comments History of Present Illness Details diabetes: Pt is a diabetic, on an NELSON and a statin. Due for A1C and microalbumin. Denies polyuria, polydipsia, and neuropathy. Pt denies any signs and symptoms of hypoglycemia and does know how to correct it. Pt reports that his blood sugar is typically in the 130s-140s. Informed pt that he can obtain his shingles vaccine from his pharmacy. Pt c/o various pains due to arthritis. Will send short duration of tramadol. Educated pt on risk of addiction, this is not a long-term med. Pt understands that they can not drive while taking this med, share this med, and to only take as prescribed. [facility] Medical History DAKOTA (acute kidney injury) Anxiety Arthritis of first MTP joint C. difficile diarrhea COVID-19 Elevated serum creatinine GERD (gastroesophageal reflux disease) Gout of right foot HTN (hypertension) Lower back pain JACINDA (obstructive sleep apnea) Surgical History H/O inguinal hernia repair Hx of umbilical hernia repair History of hernia repair Family History Father No problems noted. Mother No problems noted. Sister Cancer Sister No problems noted. Brother Diabetes mellitus Brother No problems noted. Brother No problems noted. Brother No problems noted. Brother No problems noted. Daughter No problems noted. Son No problems noted. Son No problems noted. Social History Household Members: Spouse Housing: House Alcohol intake: current Alcohol intake frequency: holidays/special occasions only Alcohol type: hard liquor Patient Tobacco Use Status: Former Tobacco user Years Smoked: 20 yrs e-Cigarette/Vaping Use: Never Used Second Hand Smoke Exposure: No service: No Current occupational status: retired Cognitive needs: No Hearing needs: No Vision needs: No Questionnaire Medicare Wellness Checkup [age] What gender do you identify with?: male During the past 4 weeks, how much have you been bothered by emotional problems such as feeling anxious, depressed, irritable, sad or downhearted, and blue?: moderately During the past 4 weeks, has your physical & emotional health limited your social activities with family, friends, neighbors, or groups?: not at all During the past 4 weeks, how much bodily pain have you generally had?: severe pain During the past 4 weeks, was someone available to help you if you needed & wanted help?: yes, as much as I wanted During the past 4 weeks, what was the hardest physical activity you could do for at least 2 minutes?: light Can you get to places out of walking distance without help? (For eg., can you travel alone on buses, taxis or drive your car?): Yes Can you go shopping for groceries or clothes without someone's help?: Yes Can you prepare your own meals?: Yes Can you do your housework without help?: Yes Because of any health problems, do you need the help of another person with your personal care needs such as eating, bathing, dressing or getting around the house?: No Can you handle your own money without help?: Yes During the past 4 weeks, how would you rate your health in general?: good During the past 4 weeks how have things been going for you?: good & bad parts about equal Are you having difficulties driving your car?: no Do you always fasten your seat belt when you are in a car?: yes, usually During past 4 weeks, have you been bothered by the following: never: Trouble eating well?, Teeth or denture problems? and Problems using the telephone? and sometimes: Falling or dizzy when standing up, Sexual problems? and Tiredness or fatigue? Have you fallen 2 or more times in the past year?: No Are you afraid of falling?: Yes Are you a smoker?: no During the past 4 weeks, how many drinks of wine, beer, or other alcoholic beverages did you have?: 1 drink or less per week Do you exercise for about 20 minutes 3 or more times a week?: yes, most of the time Have you been given information to help with the following?: yes: Hazards in your house that might hurt you? and no: Keeping track of your medications? How often do you have trouble taking medicines the way you have been told to take them?: I always take medicine as prescribed How confident are you that you can control & manage most of your health problems?: very confident What is your race?: or other Mini Mental State Exam (MMSE) Orientation What is the (year) (season) (date) (day) (month)?: year (2022) Where are we (state) (county) (town or city) (hospital) (floor)?: state (co) Registration Name of 3 unrelated objects clearly and slowly, then ask patient to repeat all 3 of them. (1st repeat determines score. Make sure they can repeat all three): object 1, object 2 and object 3 Attention & Calculation (CHOOSE ONE) Spell WORLD backwards (DLROW): 5 letters Recall Ask patient to repeat the 3 items from question #3.: object 1, object 2 and object 3 Language Show patient a wristwatch & ask what it is. Repeat for pencil.: watch and pencil Ask the patient to repeat the phrase 'No ifs, ands, or buts' after you.: correct Ask the patient to 'take a piece of paper with their right hand' 'fold paper in half' 'place paper on floor': take paper in right hand, fold paper in half and place paper on floor Print the sentence 'CLOSE YOUR EYES' on a piece. If patient actually closes eyes then score.: followed written direction Give patient a blank piece of paper & ask to write a sentence. Score if it contains a noun & verb.: sentence contains subject and verb Ask patient to copy figure of intersecting pentagons exactly. Score if all 10 angles & 2 intersects are included.: all 10 angles present & 2 are intersected Score Score: 22 Activity of Daily Living Bathing - sponge bath, tub bath or shower: receives no assistance (gets in/out by self, if usual bathing means Dressing - getting clothes from closets & drawers, including inner/outer garments & fasteners.: gets clothes & gets completely dressed without help Toileting - going to the 'toilet room' for urine/bowel elimination & cleaning self/arranging clothes: goes to toilet room, cleans self, arranges clothes without help Transfer: moves in & out of bed and chair without help (may use support object) Continence: controls urination/bowel movements completely by self Feeding: feeds self without help Total Score: 0 Information obtained from: patient Using telephone: independent Traveling: independent Shopping: independent Preparing meals: independent Housework: independent Taking medicine: independent Managing money: independent PHQ-9 Over the last 2 weeks, how often have you been bothered by any of the following problems? 1. Little interest or pleasure in doing things: several days 2. Feeling down, depressed, or hopeless: more than half the days 3. Trouble falling or staying asleep, or sleeping too much: several days 4. Feeling tired or having little energy: several days 5. Poor appetite or overeating: several days 6. Feeling bad about yourself - or that you are a failure or have let yourself or your family down: not at all 7. Trouble concentrating on things, such as reading the newspaper or watching television: several days 8. Moving or speaking so slowly that other people could have noticed. Or the opposite - being so fidgety or restless that you have been moving around a lot more than usual: not at all 9. Thoughts that you would be better off or of hurting yourself in some way: not at all Total score: 7 Depression Screening Interpretation: Negative Depression Screening Done: Yes 16494 - PHQ-9 Billing: Yes Source: Developed by Drs. Guanakito Lynn, Eryn Arredondo, Severo Valle and colleagues, with an educational natan from [employer]. Physical Exam Vital Signs: Last Vital Signs Pulse 72 10/17/23 13:31 BP 110/78 10/17/23 13:31 Pulse Ox 96 10/17/23 13:31 Oxygen Delivery Method Room Air 10/17/23 13:31 BMI result Body Mass Index 35.3 Resp Effort & Inspection: normal respiratory effort Auscultation: clear to auscultation bilaterally Extrem Other: bilat feet: + sensation with use of monofilament, feet intact, onychomycosis noted bilat Assessment & Plan Assessment & Plan (1) Diabetes: Code(s): E11.9 - Type 2 diabetes mellitus without complications Plan: Labs ordered (2) Encounter for annual wellness visit (AWV) in Medicare patient: Code(s): Z00.00 - Encounter for general adult medical examination without abnormal findings Plan: Information filled out with pt Plan The patient agreed to the use of a medical claims representative for this encounter. Scribed for EVE Berkowitz by Mi Abernathy medical claims representative, on 10/17/2023 at 13:45 EST. Orders: Orders Complete Blood Count Auto Diff Today E11.9 - Type 2 diabetes mellitus without complications TSH reflex Free T4 Today E11.9 - Type 2 diabetes mellitus without complications Microalbumin, Random (w Creat) Today E11.9 - Type 2 diabetes mellitus without complications Hemoglobin A1c Today E11.9 - Type 2 diabetes mellitus without complications Comprehensive [place]. Panel Fast Today E11.9 - Type 2 diabetes mellitus without complications UA CC w/rflx Micro + Cult Today E11.9 - Type 2 diabetes mellitus without complications Lipid Panel Today E11.9 - Type 2 diabetes mellitus without complications Medications: New tramadol 50 mg PO DAILY 14 days PRN 14 tabs 0RF pain Refilled omeprazole 20 mg PO DAILY 90 caps 1RF Quality Reporting (2019) Depression/Bipolar (159/160/161/177) PHQ-9: Total score: 7 Coding Level of Care Code Medicare First (G0438) Est Pt Level 3 (09868) Diagnoses Diabetes E11.9 Encounter for annual wellness visit (AWV) in Medicare patient Z00.00 CPT Codes Advance Care Planning - Time spent: 1-15 minutes, not on file ([id number]) Advance Care Planning Forms completed: Health Care Proxy (form given to pt), MOLST (form given to pt to fill out) and Living will (recommended to pt he gets this performed) Time spent: 1-15 minutes, not on file Actual minutes spent: 15
[2023-10-17 13:31] VITALS: BP 110/78; PULSE 72; O2SAT 96; BMI 35.3
== END 2023-10-17 14:39 | disposition home or self-care (01) ==
PROVIDERS: PCP Nurse Practitioner Family; Visit Provider Nurse Practitioner Family
DX: Z00.00 Encounter for general adult medical examination without abnormal findings (principal); E11.9 Type 2 diabetes mellitus without complications
CPT/HCPCS: 1124F; 99213; G0438

== ENCOUNTER 2024-01-03 07:55 | Outpatient (REF) | payer MEDICARE, MEDICAID, SELFPAY ==
[2024-01-03 11:15] LABS: MANUAL DIFF FLAG NO
[2024-01-03 11:23] LABS: Appearance Urine Clear; Color Urine Yellow; Glucose Urine UA Negative (Negative); Leukocyte Esterase Urine Negative (Negative); Nitrite Urine Negative (Negative); Urine Blood Negative (Negative); Urine Ketones Negative (Negative); Urine Protein Negative (Neg-Trace)
[2024-01-03 11:26] LABS: Basophils Percent Auto 0.5 % (0-2); Eosinophils Absolute Auto 0.1 X10*3/uL (0.0-0.4); Eosinophils Percent Auto 2.9 % (0-4); Hematocrit 37.6 % (42.0-52.0); Hemoglobin 12.5 g/dl (14.0-18.0); Imm Gran Abs Auto 0.03 X10*3/uL (0.00-0.03); Imm Gran Pct Auto 0.7 % (0.0-0.4); Lymphocytes Absolute Auto 1.1 X10*3/uL (1.2-4.9); Lymphocytes Percent Auto 26.3 % (20-40); Mean Corpuscular HGB Conc 33.2 g/dl (31.0-36.0); Mean Corpuscular Hemoglobin 30.6 pg (27.0-33.0); Mean Corpuscular Volume 91.9 fL (80.0-98.0); Mean Platelet Volume 10.1 fL (9.4-12.4); Monocytes Absolute Auto 0.5 X10*3/uL (0.1-1.2); Monocytes Percent Auto 12.4 % (2-11); Neutrophils Absolute Auto 2.4 x10*3/uL (2.0-8.3); Neutrophils Percent Auto 57.2 % (45-73); Platelet Count 181 X10*3/uL (160-400); Red Blood Count 4.09 X10*6/uL (4.60-5.80); Red Cell Distribution Width 14.1 % (11.0-16.0); White Blood Count 4.2 X10*3/uL (4.8-10.8)
[2024-01-03 11:37] LABS: Estimated Average Glucose 143 mg/dL; Hemoglobin A1c % 6.6 % (<6.0)
[2024-01-03 11:45] LABS: Microalbum/Creatinine Ratio Ur 13.7 ug/mg cr (<30)
[2024-01-03 11:56] LABS: Alanine Aminotransferase 21 U/L (0-40); Albumin Level 4.2 g/dL (3.5-5.0); Alkaline Phosphatase 57 U/L (39-117); Anion Gap 13 (12-20); Aspartate Amino Transferase 20 U/L (5-37); Bilirubin Total 0.4 mg/dL (0.0-1.0); Blood Urea Nitrogen 21 mg/dL (9-16); Calcium 9.1 mg/dL (8.4-10.2); Carbon Dioxide 25 mmol/L (22-29); Chloride 108 mmol/L (96-108); Cholesterol 143 mg/dL (<200); Estimated Glomerular Filt Rate > 60; Glucose Fasting 146 mg/dL (60-99); HDL Cholesterol 65 mg/dL (>40); LDL Cholesterol Calculated 62 mg/dL (<100); Potassium 3.9 mmol/L (3.3-5.1); Sodium 142 mmol/L (135-145); TSH reflex Free T4 0.57 uIU/mL (0.32-4.0); Triglycerides 80 mg/dL (<150)
== END 2024-01-03 07:56 | disposition home or self-care (01) ==
LOC: HO.HMGCLDS 07:55
PROVIDERS: PCP Nurse Practitioner Family; Referring Provider Urology; Visit Provider Nurse Practitioner Family
DX: E11.9 Type 2 diabetes mellitus without complications (principal)
CPT/HCPCS: 36415; 80053; 80061; 81003; 82043; 82570; 83036; 84443; 85025

== ENCOUNTER 2024-01-08 08:48 | Outpatient (REF) | payer MEDICARE, MEDICAID, SELFPAY ==
[2024-01-08 12:23] LABS: Prostate Specific Antigen < 0.10 ng/mL (<0.05-4.0)
[2024-01-13 10:53] LABS: Testosterone, Total 23 ng/dL (250-1100)
== END 2024-01-08 08:49 | disposition home or self-care (01) ==
LOC: HO.HMGCLDS 08:48
PROVIDERS: PCP Nurse Practitioner Family; Visit Provider Urology
DX: Z12.5 Encounter for screening for malignant neoplasm of prostate (principal); C61 Malignant neoplasm of prostate
CPT/HCPCS: 36415; 84153; 84403

== ENCOUNTER 2024-01-12 14:29 | Outpatient (AMB) | payer MEDICARE, MEDICAID, SELFPAY ==
--- NOTE | 2024-01-12 14:30 | A.OFFVIS_ITS ---
Intake Intake Visit Reasons: 3M PSA/Testosterone(Pending) Intake Note: Patient presents today for labs follow-up Meds- Finasteride, Terazosin, Tadalafil Allergies to Antibiotic- No Known Allergies Blood Thinner- None PVR: 13ml Software Administrator Required: No Accompanied by: Self / Same As Patient Allergies No Known Allergies [No Known Allergies*] Allergy (Verified 01/12/24 14:44) Medication List - Last Reconciled 01/12/24 by Leroy Hale MD alcohol swabs 1 pad topical BID allopurinol 300 mg PO DAILY alprazolam 1 mg PO BID PRN 4 days atorvastatin 10 mg PO BEDTIME 100 days blood sugar diagnostic (OneTouch Verio test strips) TID testing blood-glucose meter (PikanoteTouch Verio Meter) TID testing colchicine 0.6 mg PO DAILY 30 days finasteride 5 mg PO DAILY 90 days indomethacin 50 mg PO TID PRN lancets TID testing lisinopril 10 mg PO DAILY 90 days metformin 500 mg PO BID metoprolol tartrate 12.5 mg (1/2 x 25 mg) PO BID omeprazole 20 mg PO DAILY tadalafil 5 mg PO DAILY 90 days terazosin 5 mg PO BEDTIME 90 days tramadol 50 mg PO DAILY PRN 14 days HPI HPI Comments History of Present Illness Details Matini very pleasant Greek male. He is a patient of Dr. Ward. He is seen for the following urologic conditions - prostate cancer - lower urinary tract symptoms - erectile dysfunction Three month follow-up labs Continue with finasteride, terazosin, tadalafil PSA 01/06 <0.1 T 23 Lower urinary tract symptoms Urgency and frequency Nocturia x3 Progressive Prostate Cancer - unfavorable intermediate, low volume, clinically localized, Grade Group 3, GnRH 04/04 PSA 2018 5.4 prior negative biopsy, 12/05 5.9 06/04 EXBRT with GnRH with Space Oar 01/05 - 4+3=7 (right mid medial 15%, righ t apex medial 70%) 3+4=7 (left apex medial 30%) 3+3=6 (left mid medial 5%) Tumor quantitation: Number cores positive: 4 Total number of cores: 12 % of tissue involved: 10% of all tissue examined Periprostatic fat inv.:Not dalia ntified Seminal vesicle inv.: Not identified Perineural inv.: Present LVI: Not identified Staging - 02/02 MRI PI-RADS 4 right apical 1 cm l esion, no evidence ARLEEN - 02/02 bone scan negative Erectile Dysfunction PFSH Medical History 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 difficile diarrhea HTN (hypertension) Anxiety JACINDA (obstructive sleep apnea) GERD (gastroesophageal reflux disease) COVID-19 Surgical History H/O inguinal hernia repair Hx of umbilical hernia repair History of hernia repair Family History Father No problems noted. Mother No problems noted. Sister Cancer Sister No problems noted. Brother Diabetes mellitus Brother No problems noted. Brother No problems noted. Brother No problems noted. Brother No problems noted. Daughter No problems noted. Son No problems noted. Son No problems noted. Social History Household Members: Spouse Housing: House Alcohol intake: current Alcohol intake frequency: holidays/special occasions only Alcohol type: hard liquor Patient Tobacco Use Status: Former Tobacco user Years Smoked: 20 yrs e-Cigarette/Vaping Use: Never Used Second Hand Smoke Exposure: No service: No Current occupational status: retired Cognitive needs: No Hearing needs: No Vision needs: No Review of Systems Const Denies chills and Denies fever(s) Card Reports no additional complaints and Denies syncope Resp Denies cough GI Denies abdominal pain and Denies heartburn Reports as per HPI and Denies change in libido Neuro Denies syncope Psych Denies change in libido Endo Denies change in libido Physical Exam Const General: cooperative, healthy appearing, comfortable and no acute distress Orientation/consciousness: patient oriented x3 HEENT Face and sinus: Yes normal facial exam Mouth: moist mucous membranes Neck Neck: Yes normal visual inspection, Yes full ROM and Yes trachea midline Chest Chest palpation & inspection: normal inspection of the chest Resp Effort & Inspection: normal respiratory effort, able to speak in complete sentences and no respiratory distress GI Inspection: Yes normal to inspection Back/Spine/Pelvis Cervical Spine: normal cervical lordosis Thoracic/Lumbar Spine: thoracic and lumbar spine normal to inspection Skin General skin exam: no rashes or lesions noted Neuro General: patient oriented x3, gait normal, tone normal and moves all extremities Extrem General: Yes normal to inspection and Yes capillary refill normal Office Procedures Post Void Residual Post Residual Void Post Void Residual (PVR): 13 22661-Inlz Void Residual by ultrasound Assessment & Plan Assessment & Plan (1) Prostate cancer: Comment: 01/05 Gl 4+3, unfavorable intermediate, clinically localized Code(s): C61 - Malignant neoplasm of prostate (2) Erectile dysfunction: Code(s): N52.9 - Male erectile dysfunction, unspecified Qualifiers: Erectile dysfunction type: vasculogenic Vasculogenic erectile d ysfunction 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 Qualified Code(s): N52.03 - Combined arterial insufficiency and corporo-venous occlusive erectile dysfunction Plan Three-month follow-up labs Orders: Orders Prostate Specific Antigen 3 Months C61 - Malignant neoplasm of prostate Testosterone, Total 3 Months C61 - Malignant neoplasm of prostate AMB Post Void Residual by ultrasound 01/12/24 R33.9 - Retention of urine, unspecified Patient Instructions: Imaging studies, laboratory and physical exam results were discussed and reviewed in detail. No major barriers to patient understanding were identified. An opportunity to ask questions regarding the treatment plan was provided. All questions were answered. The patient expressed understanding and agreement with the above treatment plan. The patient is aware they should contact our office by phone for worsening of their current condition or the appearance of new urologic symptoms. Compliance is encouraged with any medications and followup testing that is ordered. It is a privilege to participate in the urologic care of your patient. If you have any questions or concerns regarding treatment for the above conditions, or other urologic issues, please do not hesitate to contact me. The office telephone contact is [phone]. This note is constructed using voice recognition software. While every effort has been made to ensure accuracy poultry hatchery manager errors may have been included. 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
== END 2024-01-12 15:08 | disposition home or self-care (01) ==
PROVIDERS: PCP Nurse Practitioner Family; Visit Provider Urology
DX: C61 Malignant neoplasm of prostate (principal); N52.03 Combined arterial insufficiency and corporo-venous occlusive erectile dysfunction
CPT/HCPCS: 99213

== ENCOUNTER → 2024-01-12 14:29 | Outpatient (BNVA) | payer MEDICARE, MEDICAID, SELFPAY | PROVIDERS: PCP Nurse Practitioner Family; Visit Provider Urology | DX: C61 Malignant neoplasm of prostate (principal); N52.03 Combined arterial insufficiency and corporo-venous occlusive erectile dysfunction | CPT/HCPCS: 51798; 99212 ==

== ENCOUNTER 2024-02-27 08:33 | Outpatient (AMB) | payer MEDICARE, MEDICAID, SELFPAY ==
--- NOTE | 2024-02-27 08:35 | MHC.PC.OV ---
Vital Signs 02/27/24 08:37 Weight 252 lb BP 114/76 Blood Pressure Location Rt brachial Position Sitting Pulse 80 Pulse Source Pulse Oximeter Pulse Oximetry (%) 98 Oxygen Delivery Method Room Air Intake Visit Reasons: DM 4 month fu Intake Note: pt coming in for sick visit and would like to talk about not feeling well for about 2 days w/body aches. Allergies No Known Allergies [No Known Allergies*] Allergy (Verified 02/27/24 12:07) Medication List - Last Reconciled 02/27/24 by SINAN Lezama alcohol swabs 1 pad topical BID allopurinol 300 mg PO DAILY alprazolam 1 mg PO BID PRN 4 days atorvastatin 10 mg PO BEDTIME 100 days blood sugar diagnostic (Mapflow Verio test strips) TID testing blood-glucose meter (Skiin Fundementalsuch Verio Meter) TID testing colchicine 0.6 mg PO DAILY 30 days finasteride 5 mg PO DAILY 90 days indomethacin 50 mg PO TID PRN lancets TID testing lisinopril 10 mg PO DAILY 90 days metformin 500 mg PO BID metoprolol tartrate 12.5 mg (1/2 x 25 mg) PO BID omeprazole 20 mg PO DAILY tadalafil 5 mg PO DAILY 90 days terazosin 5 mg PO BEDTIME 90 days tramadol 50 mg PO DAILY PRN 14 days Tobacco use date assessed: 02/27/24 HPI DM 4 month fu HPI Details Pt c/o body aches, chills, congestion, and cough. He reports that these symptoms starting on Monday. Will swab for COVID/flu/RSV. Will send benzonatate. Denies fever, chest pain, and shortness of breath. Pt has an upcoming flight and is anxious for it. Will send short duration of alprazolam as this has worked well previously. Educated pt on risk of addiction, this is not a long-term med. Pt understands that they can not drive while taking this med, share this med, and to only take as prescribed. [facility] Medical History 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 difficile diarrhea HTN (hypertension) Anxiety JACINDA (obstructive sleep apnea) GERD (gastroesophageal reflux disease) COVID-19 Surgical History H/O inguinal hernia repair Hx of umbilical hernia repair History of hernia repair Family History Father No problems noted. Mother No problems noted. Sister Cancer Sister No problems noted. Brother Diabetes mellitus Brother No problems noted. Brother No problems noted. Brother No problems noted. Brother No problems noted. Daughter No problems noted. Son No problems noted. Son No problems noted. Social History Household Members: Spouse Housing: House Alcohol intake: current Alcohol intake frequency: holidays/special occasions only Alcohol type: hard liquor Patient Tobacco Use Status: Former Tobacco user Years Smoked: 20 yrs e-Cigarette/Vaping Use: Never Used Second Hand Smoke Exposure: No service: No Current occupational status: retired Cognitive needs: No Hearing needs: No Vision needs: No Questionnaire Thrive Questionnaire Date Thrive assessed: 01/23/23 KATH-7 AMB Questionnaire KATH-7 Date KATH - 7 assessed: 01/23/23 Source: Developed by Drs. Guanakito Lynn, Eryn Arredondo, Severo Valle and colleagues, with an educational natan from [employer]. Review of Systems Const Reports as per HPI Physical exam (Primary Care) Vital Signs: Last Vital Signs Pulse 80 02/27/24 08:37 BP 114/76 02/27/24 08:37 Pulse Ox 98 02/27/24 08:37 Oxygen Delivery Method Room Air 02/27/24 08:37 Tobacco/Smoking Status: Tobacco use Status Tobacco use date assessed 02/27/24 02/27/24 08:42 Patient Tobacco Use Status Former Tobacco user 02/27/24 08:36 e-Cigarette/Vaping Use Never Used 02/27/24 08:36 Thrive Assessment: Date of Thrive Assessment Date Thrive assessed 01/23/23 02/27/24 08:36 Const General: cooperative Orientation/consciousness: patient oriented x3 HENMT Ears: TM normal on the right and TM normal on the left Neck Neck: Yes normal visual inspection and Yes no lymphadenopathy Resp Other: lungs fairly clear Effort & Inspection: normal respiratory effort Cardio Rate: regular rate Rhythm: regular rhythm Heart sounds: S1 normal heart sound present and S2 normal heart sound present Neuro General: patient oriented x3 Psych Appearance: grossly normal Mental Status: mental status grossly normal Speech and movement: Normal speech and movement present Affect: normal affect Attitude: cooperative Thought process: Normal thought process present Thought content: Normal thought content present Insight: Good insight present (Psych) Judgement: Good judgement present (Psych) Assessment and Plan Assessment & Plan (1) Cough: Code(s): R05 - Cough Plan The patient agreed to the use of a medical assistant dermatology for this encounter. Scribed for SINAN Berkowitz by Mi Abernathy medical assistant dermatology, on 02/27/2024 at 08:50 EST. Orders: Orders SARS-CoV2/FLU/RSV Today R05 - Cough Medications: New benzonatate 150 mg PO BID PRN 10 caps 0RF cough 5 days Refilled alprazolam take 45 minutes before flight 1 mg PO BID PRN 8 tabs 0RF anxiety 4 days Coding Level of Care Code Est Pt Level 3 (87479) Diagnoses Cough R05
[2024-02-27 08:37] VITALS: BP 114/76; PULSE 80; O2SAT 98
== END 2024-02-27 08:59 | disposition home or self-care (01) ==
PROVIDERS: PCP Nurse Practitioner Family; Visit Provider Nurse Practitioner Family
DX: R05.9 Cough, unspecified (principal)
CPT/HCPCS: 99213

== ENCOUNTER 2024-02-27 10:14 | Outpatient (REF) | payer MEDICARE, MEDICAID, SELFPAY ==
[2024-02-27 11:18] LABS: Influenza A PCR NEGATIVE (Negative); Influenza B PCR NEGATIVE (Negative); Resp Syncy Virus RNA Qual PCR NEGATIVE (Negative); SARS COV2 PCR INHOUSE NEGATIVE (Negative)
== END 2024-02-27 10:15 | disposition home or self-care (01) ==
LOC: HO.HMGCLNP 10:14
PROVIDERS: Visit Provider Nurse Practitioner Family
DX: R05.9 Cough, unspecified (principal); B34.9 Viral infection, unspecified
CPT/HCPCS: 0241U

== ENCOUNTER 2024-05-15 07:41 | Outpatient (REF) | payer MEDICARE, SELFPAY ==
[2024-05-15 10:26] LABS: MANUAL DIFF FLAG NO
[2024-05-15 10:37] LABS: Basophils Percent Auto 0.6 % (0-2); Eosinophils Absolute Auto 0.2 X10*3/uL (0.0-0.4); Hematocrit 41.4 % (42.0-52.0); Hemoglobin 13.7 g/dl (14.0-18.0); Imm Gran Abs Auto 0.02 X10*3/uL (0.00-0.03); Imm Gran Pct Auto 0.4 % (0.0-0.4); Lymphocytes Absolute Auto 1.4 X10*3/uL (1.2-4.9); Lymphocytes Percent Auto 28.7 % (20-40); Mean Corpuscular HGB Conc 33.1 g/dl (31.0-36.0); Mean Corpuscular Hemoglobin 30.6 pg (27.0-33.0); Mean Corpuscular Volume 92.4 fL (80.0-98.0); Mean Platelet Volume 9.9 fL (9.4-12.4); Monocytes Absolute Auto 0.6 X10*3/uL (0.1-1.2); Monocytes Percent Auto 11.8 % (2-11); Neutrophils Absolute Auto 2.8 x10*3/uL (2.0-8.3); Neutrophils Percent Auto 55.5 % (45-73); Platelet Count 208 X10*3/uL (160-400); Red Blood Count 4.48 X10*6/uL (4.60-5.80); Red Cell Distribution Width 13.3 % (11.0-16.0)
[2024-05-15 11:17] LABS: Ferritin 448 ng/mL (20-250); Iron 54 mcg/dL (45-160); Percent Iron Saturation 19 % (15-50); Total Iron Binding Capacity 278 mcg/dL (228-428); Unsaturated Iron Binding 224 ug/dL
[2024-05-15 11:18] LABS: Prostate Specific Antigen < 0.10 ng/mL (<0.05-4.0)
[2024-05-15 11:36] LABS: Folate 11.1 ng/mL (> or = 4.0); Vitamin B12 621 pg/mL (200-900)
[2024-05-20 13:15] LABS: Testosterone, Total 142 ng/dL (250-1100)
== END 2024-05-15 07:42 | disposition home or self-care (01) ==
LOC: HO.HMGCLDS 07:41
PROVIDERS: PCP Nurse Practitioner Family; Visit Provider Urology
DX: Z12.5 Encounter for screening for malignant neoplasm of prostate (principal); C61 Malignant neoplasm of prostate; D64.9 Anemia, unspecified
CPT/HCPCS: 36415; 82607; 82728; 82746; 83540; 84153; 84403; 85025

== ENCOUNTER 2024-05-21 08:42 | Outpatient (AMB) | payer MEDICARE, SELFPAY ==
--- NOTE | 2024-05-21 08:43 | A.OFFVIS_ITS ---
Intake Visit Reasons: 3M PSA/Testo(pending) Intake Note: Patient is Present for Telephone Follow Up Urology Med: Finasteride, Tadalafil, Terazosin Antibiotic Allergy: None Blood Thinner: None Business Services Intern Required: No Allergies No Known Allergies [No Known Allergies*] Allergy (Verified 05/21/24 08:45) Medication List - Last Reconciled 05/21/24 by Leroy Hale MD alcohol swabs 1 pad topical BID allopurinol 300 mg PO DAILY alprazolam 1 mg PO BID PRN 4 days atorvastatin 10 mg PO BEDTIME 100 days benzonatate 150 mg PO BID PRN 5 days blood sugar diagnostic (RSP ToolingTouch Verio test strips) TID testing blood-glucose meter (Zagsteruch Verio Meter) TID testing colchicine 0.6 mg PO DAILY 30 days indomethacin 50 mg PO TID PRN lancets TID testing lisinopril 10 mg PO DAILY 90 days metformin 500 mg PO BID metoprolol tartrate 12.5 mg (1/2 x 25 mg) PO BID omeprazole 20 mg PO DAILY tadalafil 5 mg PO DAILY 90 days terazosin 5 mg PO BEDTIME 90 days tramadol 50 mg PO DAILY PRN 14 days HPI Comments Details: Leonor very pleasant Faroese male. He is a patient of Dr. Ward. He is seen for the following urologic conditions - prostate cancer - lower urinary tract symptoms - erectile dysfunction Telemedicine Evaluation 15 min Consultation [employer] Video Three month follow-up labs Start finasteride Increase dose tadalafil. Has minimal response to 5 mg daily. Try 10 mg daily with 20 mg on demand. PSA 01/06 <0.1 T 23, 06/05 <0.1 T 142 Lower urinary tract symptoms Urgency and frequency Nocturia x3 Progressive Prostate Cancer - unfavorable intermediate, low volume, clinically localized, Grade Group 3, GnRH 04/04 PSA 2018 5.4 prior negative biopsy, 12/05 5.9 06/04 EXBRT with GnRH with Space Oar 01/05 - 4+3=7 (right mid medial 15%, right apex medial 70%) 3+4=7 (left apex medial 30%) 3+3=6 (left mid medial 5%) Tumor quantitation: Number cores positive: 4 Total number of cores: 12 % of tissue involved: 10% of all tissue examined Periprostatic fat inv.:Not dalia ntified Seminal vesicle inv.: Not identified Perineural inv.: Present LVI: Not identified Staging - 02/02 MRI PI-RADS 4 right apical 1 cm lesion, no evidence ARLEEN - 02/02 bone scan negative Erectile Dysfunction - background of diabetes Progressive after radiation PFSH Medical History 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 difficile diarrhea HTN (hypertension) Anxiety JACINDA (obstructive sleep apnea) GERD (gastroesophageal reflux disease) COVID-19 Surgical History H/O inguinal hernia repair Hx of umbilical hernia repair History of hernia repair Family History Father No problems noted. Mother No problems noted. Sister Cancer Sister No problems noted. Brother Diabetes mellitus Brother No problems noted. Brother No problems noted. Brother No problems noted. Brother No problems noted. Daughter No problems noted. Son No problems noted. Son No problems noted. Social History Household Members: Spouse Housing: House Alcohol intake: current Alcohol intake frequency: holidays/special occasions only Alcohol type: hard liquor Patient Tobacco Use Status: Former Tobacco user Years Smoked: 20 yrs e-Cigarette/Vaping Use: Never Used Second Hand Smoke Exposure: No service: No Current occupational status: retired Cognitive needs: No Hearing needs: No Vision needs: No Telehealth Telehealth Telehealth Platform: [facility] Location of provider rendering services: practice address Location of patient: address on file Patient Identification confirmed using: Name, : Yes Telehealth method: video Patient verbally consented to treatment: Yes Patient verbally consented to billing insurance company: Yes Patient informed of any privacy concerns related to visit: Yes Minutes spent on Phone/Video with Pt.: 15 Assessment & Plan Assessment & Plan (1) Prostate cancer: Comment: 01/05 Gl 4+3, unfavorable intermediate, clinically localized Code(s): C61 - Malignant neoplasm of prostate Category: Medical (2) Erectile dysfunction: Code(s): N52.9 - Male erectile dysfunction, unspecified Category: Medical Qualifiers: Erectile dysfunction type: vasculogenic Vasculogenic erectile dysfunction 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 Qualified Code(s): N52.03 - Combined arterial insufficiency and corporo-venous occlusive erectile dysfunction Plan Three-month follow-up PSA office Trial high-dose daily tadalafil with on demand Orders: Orders Prostate Specific Antigen 3 Months C61 - Malignant neoplasm of prostate Medications: New tadalafil Take only for intended activity 20 mg PO ONCE 30 days PRN 30 tabs 0RF sexual activity N52.01 - Erectile dysfunction due to arterial insufficiency Changed From tadalafil 5 mg PO DAILY 90 days 90 tabs 1RF sexual activity N52.01 - Erectile dysfunction due to arterial insufficiency To tadalafil 10 mg PO DAILY 90 days 90 tabs 1RF sexual activity N52.01 - Erectile dysfunction due to arterial insufficiency Discontinued finasteride Discontinued Reason: Doctor's Order 5 mg PO DAILY 90 days 90 tabs 1RF N13.8 - Other obstructive and reflux uropathy, N40.1 - Benign prostatic hyper plasia with lower urinary tract symptoms, R33.9 - Retention of urine, unspecified Patient Instructions: Imaging studies, laboratory and physical exam results were discussed and reviewed in detail. No major barriers to patient understanding were identified. An opportunity to ask questions regarding the treatment plan was provided. All questions were answered. The patient expressed understanding and agreement with the above treatment plan. The patient is aware they should contact our office by phone for worsening of their current condition or the appearance of new urologic symptoms. Compliance is encouraged with any medications and followup testing that is ordered. It is a privilege to participate in the urologic care of your patient. If you have any questions or concerns regarding treatment for the above conditions, or other urologic issues, please do not hesitate to contact me. The office telephone contact is [phone]. This note is constructed using voice recognition software. While every effort has been made to ensure accuracy railroad worker errors may have been included. 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
== END 2024-05-21 09:32 | disposition home or self-care (01) ==
LOC: HO.HUSH 08:42
PROVIDERS: PCP Nurse Practitioner Family; Visit Provider Urology
DX: C61 Malignant neoplasm of prostate (principal); N52.03 Combined arterial insufficiency and corporo-venous occlusive erectile dysfunction
CPT/HCPCS: 99213

== ENCOUNTER → 2024-05-21 08:42 | Outpatient (BNVA) | payer MEDICARE, SELFPAY | PROVIDERS: PCP Nurse Practitioner Family; Visit Provider Urology ==

== ENCOUNTER 2024-07-10 09:29 | Outpatient (AMB) | payer MEDICARE, SELFPAY ==
[2024-07-10 09:30] VITALS: BP 140/82; PULSE 75; O2SAT 94; BMI 36.4
--- NOTE | 2024-07-10 09:30 | A.OFFPC_ITS ---
Vital Signs 07/10/24 09:30 Height 5 ft 11 in Weight 261 lb BMI 36.4 BP 140/82 H Blood Pressure Location Lt brachial Position Sitting Pulse 75 Pulse Source Pulse Oximeter Pulse Oximetry (%) 94 Oxygen Delivery Method Room Air Intake Visit Reasons: 4 month follow up/ DM Intake Note: patient is here for 4 month follow up for DM, A1c done in office today Allergies No Known Allergies [No Known Allergies*] Allergy (Verified 07/10/24 09:37) Tobacco use date assessed: 07/10/24 Fall risk assessment: No Falls in past year Last assessed Fall Risk: 07/10/24 Dental Screening Dental Screen Date: 07/10/24 Did you have a dental visit in the last 12 months?: Yes Did you have a dental problem in the last 6 months where you did not have access to dental care?: Yes Was dental information given to patient?: Patient has dentist HPI 4 month follow up/ DM HPI Details Pt is a diabetic, on an NELSON and a statin. A1C in office today is 7.4. Microalbumin is up to date. Denies polyuria and polydipsia, does report neuropathy to right foot toes 1 and 2. Pt denies any signs and symptoms of hypoglycemia and does know how to correct it. Pt will schedule his own eye exam. Will increase metformin from 500mg bid to 1000mg bid. Pt reports that he has not been taking his metoprolol, highly encouraged pt to take this. Pt reports ongoi ng lower back pain. He is doing a lot of heavy lifting at his job, though he is getting a new job soon. Will send short duration of tramadol. Educated pt on risk of addiction, this is not a long-term med. Pt understands that they can not drive while taking this med, share this med, and to only take as prescribed. [facility] Medical History (Updated 07/10/24 @ 09:58 by KEISHA Lezama-) 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 difficile diarrhea HTN (hypertension) Anxiety JACINDA (obstructive sleep apnea) GERD (gastroesophageal reflux disease) COVID-19 Surgical History (Reviewed 07/10/24 @ 09:34 by Sumit Oakes [facility]) H/O inguinal hernia repair Hx of umbilical hernia repair History of hernia repair Family History Father No problems noted. Mother No problems noted. Sister Cancer Sister No problems noted. Brother Diabetes mellitus Brother No problems noted. Brother No problems noted. Brother No problems noted. Brother No problems noted. Daughter No problems noted. Son No problems noted. Son No problems noted. Social History (Reviewed 07/10/24 @ 09:34 by Sumit Oakes [facility]) Household Members: Spouse Housing: House Alcohol intake: current Alcohol intake frequency: holidays/special occasions o nly Alcohol type: hard liquor Patient Tobacco Use Status: Former Tobacco user Years Smoked: 20 yrs e-Cigarette/Vaping Use: Never Used Second Hand Smoke Exposure: No service: No Current occupational status: retired Cognitive needs: No Hearing needs: No Vision needs: Yes Questionnaire PHQ-9 Over the last 2 weeks, how often have you been bothered by any of the following problems? 1. Little interest or pleasure in doing things: not at all 2. Feeling down, depressed, or hopeless: not at all 3. Trouble falling or staying asleep, or sleeping too much: not at all 4. Feeling tired or having little energy: not at all 5. Poor appetite or overeating: not at all 6. Feeling bad about yourself - or that you are a failure or have let yourself or your family down: not at all 7. Trouble concentrating on things, such as reading the newspaper or watching television: not at all 8. Moving or speaking so slowly that other people could have noticed. Or the opposite - being so fidgety or restless that you have been moving around a lot more than usual: not at all 9. Thoughts that you would be better off or of hurting yourself in some way: not at all Total score: 0 Depression Screening Interpretation: Negative Depression Screening Done: Yes 26091 - PHQ-9 Billing: Yes Source: Developed by Drs. Guanakito Lynn, Eryn Arredondo, Severo Valle and colleagues, with an educational natan from [employer]. Thrive Questionnaire Date Thrive assessed: 07/10/24 I am a: Patient What is your living situation today?: I have a steady place to live Within the past 12 months, did the food you bought not last and you didn't have the money to get more?: Never true Within the past 12 months, did you worry whether your food would run out before you got money to buy more?: Never true Do you have trouble paying for medicines?: No Do you have trouble getting transportation to medical appointments?: No Do you have trouble paying your heating and electricity bill?: No Do you have trouble taking care of your child, family member or friend?: No Do you have trouble with day-to-day activities such as bathing, preparing meals, shopping, managing finances, etc.?: No Are you currently unemployed and looking for a job?: No Are you interested in more education?: No THRIVE Score: 0 AUDIT C Alcohol Use Questionnaire (AUDIT-C) 1. How often do you have a drink containing alcohol?: Monthly or less 2. How many drinks containing alcohol do you have on a typical day when you are drinking?: 1 or 2 3. How often do you have six or more drinks on one occasion?: Never Total Score: 1 KATH-7 AMB Questionnaire KATH-7 Date KATH - 7 assessed: 07/10/24 Feeling nervous, anxious, or on edge: 1 = Several days Not being able to stop or control worryin = Several days Worrying too much about different things: 0 = Not at all Trouble relaxin = Several days Being so restless that it is hard to sit still: 1 = Several days Becoming easily annoyed or irritable: 1 = Several days Feeling afraid as if something awful might happen: 1 = Several days Total KATH-7 score (0-4 normal; 5-9 mild; 10-14 moderate; 15-21 severe): 6 Source: Developed by Drs. Guanakito Lynn, Eryn Arredondo, Severo Valle and colleagues, with an educational natna from [employer]. Review of Systems Const Reports as per HPI Physical exam (Primary Care) Vital Signs: Last Vital Signs Pulse 75 07/10/24 09:30 BP 140/82 H 07/10/24 09:30 Pulse Ox 94 07/10/24 09:30 Oxygen Delivery Method Room Air 07/10/24 09:30 BMI result Body Mass Index 36.4 Tobacco/Smoking Status: Tobacco use Status Tobacco use date assessed 07/10/24 07/10/24 09:37 Patient Tobacco Use Status Former Tobacco user 07/10/24 09:34 e-Cigarette/Vaping Use Never Used 07/10/24 09:34 PHQ-9: PHQ-9 Score PHQ-9: Total score 0 07/10/24 09:48 Depression Screening Interpretation: Negative Thrive Assessment: Date of Thrive Assessment Date Thrive assessed 07/10/24 07/10/24 09:43 Const General: cooperative Orientation/consciousness: patient oriented x3 Resp Effort & Inspection: normal respiratory effort Auscultation: clear to auscultation bilaterally Cardio Rate: regular rate Rhythm: regular rhythm Heart sounds: S1 normal heart sound present and S2 normal heart sound present Neuro General: patient oriented x3 Extrem Other: bilat feet: + sensation with use of monofilament, feet intact Psych Appearance: grossly normal Mental Status: mental status grossly normal Speech and movement: Normal speech and movement present Affect: normal affect Attitude: cooperative Thought process: Normal thought process present Thought content: Normal thought content present Insight: Good insight present (Psych) Judgement: Good judgement present (Psych) Results AMB Hemoglobin A1c AMB Hemoglobin A1c 7.4 % Last Edit by Cherie Herron CMA on 07/10/24 09:45 Results Reviewed Results Reviewed: Laboratory Last Values Hgb A1c (Clinic) 7.4 % (4.0-6.0) H 07/10/24 09:44 Assessment and Plan Assessment & Plan (1) Diabetes: Code(s): E11.9 - Type 2 diabetes mellitus without complications Plan: Labs ordered, increasing metformin from 500mg bid to 1000mg bid (2) Lower back pain: Code(s): M54.5 - Low back pain Plan: changing jobs, short duration of tramadol sent (3) HTN (hypertension): Code(s): I10 - Essential (primary) hypertension Plan: restart metoprolol Plan The patient agreed to the use of a medical psychotherapist for this encounter. Scribed for SINAN Berkowitz by Mi Abernathy medical psychotherapist, on 07/10/2024 at 09:50 EST. Orders: Orders UA CC w/rflx Micro + Cult Today E11.9 - Type 2 diabetes mellitus without complications Lipid Panel Today E11.9 - Type 2 diabetes mellitus without complications AMB Hemoglobin A1c Today E11.9 - Type 2 diabetes mellitus without complications Complete Blood Count Auto Diff Today E11.9 - Type 2 diabetes mellitus without complications Comprehensive [place]. Panel Fast Today E11.9 - Type 2 diabetes mellitus without complications TSH reflex Free T4 Today E11.9 - Type 2 diabetes mellitus without complications Medications: Changed From metformin 500 mg PO BID 180 tabs 1RF To metformin 1,000 mg PO BID 180 tabs 1RF 90 days Refilled tramadol 50 mg PO DAILY PRN 14 tabs 0RF pain 14 days Coding Level of Care Code Est Pt Level 3 (79126) Diagnoses Diabetes E11.9 Lower back pain M54.5 HTN (hypertension) I10
== END 2024-07-10 09:58 | disposition home or self-care (01) ==
PROVIDERS: PCP Nurse Practitioner Family; Visit Provider Nurse Practitioner Family
DX: E11.9 Type 2 diabetes mellitus without complications (principal); M54.50 Low back pain, unspecified; I10 Essential (primary) hypertension
CPT/HCPCS: 83036; 99213

== ENCOUNTER 2024-09-18 07:42 | Outpatient (REF) | payer MEDICARE, SELFPAY ==
[2024-09-18 10:07] LABS: MANUAL DIFF FLAG NO
[2024-09-18 10:18] LABS: Basophils Percent Auto 0.4 % (0-2); Eosinophils Absolute Auto 0.3 X10*3/uL (0.0-0.4); Eosinophils Percent Auto 4.5 % (0-4); Hematocrit 39.5 % (42.0-52.0); Hemoglobin 13.1 g/dl (14.0-18.0); Imm Gran Abs Auto 0.01 X10*3/uL (0.00-0.03); Imm Gran Pct Auto 0.2 % (0.0-0.4); Lymphocytes Absolute Auto 1.5 X10*3/uL (1.2-4.9); Lymphocytes Percent Auto 26.6 % (20-40); Mean Corpuscular HGB Conc 33.2 g/dl (31.0-36.0); Mean Corpuscular Hemoglobin 30.2 pg (27.0-33.0); Mean Platelet Volume 10.2 fL (9.4-12.4); Monocytes Absolute Auto 0.6 X10*3/uL (0.1-1.2); Monocytes Percent Auto 11.2 % (2-11); Neutrophils Absolute Auto 3.2 x10*3/uL (2.0-8.3); Neutrophils Percent Auto 57.1 % (45-73); Platelet Count 204 X10*3/uL (160-400); Red Blood Count 4.34 X10*6/uL (4.60-5.80); Red Cell Distribution Width 13.8 % (11.0-16.0); White Blood Count 5.5 X10*3/uL (4.8-10.8)
[2024-09-18 10:18] LABS: Appearance Urine Clear; Color Urine Yellow; Glucose Urine UA Negative (Negative); Leukocyte Esterase Urine Negative (Negative); Nitrite Urine Negative (Negative); PH 5.5 (5.0-9.0); Urine Blood Negative (Negative); Urine Ketones Negative (Negative); Urine Protein Negative (Neg-Trace)
[2024-09-18 10:47] LABS: Prostate Specific Antigen < 0.10 ng/mL (<0.05-4.0)
[2024-09-18 11:16] LABS: Alanine Aminotransferase 23 U/L (0-40); Albumin Level 4.3 g/dL (3.5-5.0); Alkaline Phosphatase 59 U/L (39-117); Anion Gap 13 (12-20); Aspartate Amino Transferase 29 U/L (5-37); Bilirubin Total 0.4 mg/dL (0.0-1.0); Blood Urea Nitrogen 26 mg/dL (9-16); Calcium 9.5 mg/dL (8.4-10.2); Carbon Dioxide 24 mmol/L (22-29); Chloride 106 mmol/L (96-108); Cholesterol 124 mg/dL (<200); Estimated Glomerular Filt Rate > 60; Glucose Fasting 159 mg/dL (60-99); HDL Cholesterol 63 mg/dL (>40); LDL Cholesterol Calculated 49 mg/dL (<100); Sodium 139 mmol/L (135-145); Total Protein 7.2 g/dL (6.5-8.0); Triglycerides 61 mg/dL (<150)
[2024-09-18 11:33] LABS: TSH reflex Free T4 1.15 uIU/mL (0.32-4.0)
== END 2024-09-18 07:43 | disposition home or self-care (01) ==
LOC: HO.HMGCLDS 07:42
PROVIDERS: PCP Nurse Practitioner Family; Referring Provider Urology; Visit Provider Nurse Practitioner Family
DX: C61 Malignant neoplasm of prostate (principal); E11.69 Type 2 diabetes mellitus with other specified complication; Z12.5 Encounter for screening for malignant neoplasm of prostate
CPT/HCPCS: 36415; 80053; 80061; 81003; 84153; 84443; 85025

== ENCOUNTER 2024-09-20 13:27 | Outpatient (AMB) | payer MEDICARE, SELFPAY ==
--- NOTE | 2024-09-20 13:35 | A.OFFVIS_ITS ---
Intake Visit Reasons: 3M PSA(set) Intake Note: Patient is Present for Follow Up PSA Urology Medication: Terazosin,Tadalafil, Finasteride Antibiotic Allergies: None Blood Thinners:None Recent PSA: 09/18/24 <0.10 Recent Hemoglobin A1C: 06/2024 7.4 Director Of Corporate Responsibility Required: No Accompanied by: Self / Same As Patient Allergies No Known Allergies [No Known Allergies*] Allergy (Verified 09/20/24 13:53) HPI Comments Details: Leonor very pleasant [place]er male. He is a patient of Dr. Ward. He is seen for the following urologic conditions - prostate cancer - lower urinary tract symptoms - erectile dysfunction Four month follow-up labs Discussed medications Can try coming off terazosin Refill medications Increase dose tadalafil. Has minimal response to 5 mg daily. Try 10 mg daily with 20 mg on demand. PSA 01/06 <0.1 T 23, 06/05 <0.1 T 142, 10/06 <0.1 Lower urinary tract symptoms Urgency and frequency Nocturia x3 Progressive Prostate Cancer - unfavorable intermediate, low volume, clinically localized, Grade Group 3, GnRH 04/04 PSA 2018 5.4 prior negative biopsy, 12/05 5.9 06/04 EXBRT with GnRH with Space Oar 01/05 - 4+3=7 (right mid medial 15%, right apex medial 70%) 3+4=7 (left apex medial 30%) 3+3=6 (left mid medial 5%) Tumor quantitation: Number cores positive: 4 Total number of cores: 12 % of tissue involved: 10% of all tissue examined Periprostatic fat inv.:Not dalia ntified Seminal vesicle inv.: Not identified Perineural inv.: Present LVI: Not identified Staging - 02/02 MRI PI-RADS 4 right apical 1 cm lesion, no evidence ARLEEN - 02/02 bone scan negative Erectile Dysfunction - background of diabetes Progressive after radiation PFSH Medical History 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 difficile diarrhea HTN (hypertension) Anxiety JACINDA (obstructive sleep apnea) GERD (gastroesophageal reflux disease) COVID-19 Surgical History H/O inguinal hernia repair Hx of umbilical hernia repair History of hernia repair Family History Father No problems noted. Mother No problems noted. Sister Cancer Sister No problems noted. Brother Diabetes mellitus Brother No problems noted. Brother No problems noted. Brother No problems noted. Brother No problems noted. Daughter No problems noted. Son No problems noted. Son No problems noted. Social History Household Members: Spouse Housing: House Alcohol intake: current Alcohol intake frequency: holidays/special occasions only Alcohol type: hard liquor Patient Tobacco Use Status: Former Tobacco user Years Smoked: 20 yrs e-Cigarette/Vaping Use: Never Used Second Hand Smoke Exposure: No service: No Current occupational status: retired Cognitive needs: No Hearing needs: No Vision needs: Yes Assessment & Plan Assessment & Plan (1) Prostate cancer: Comment: 01/05 Gl 4+3, unfavorable intermediate, clinically localized Code(s): C61 - Malignant neoplasm of prostate Category: Medical Plan Four month follow-up PSA Orders: Orders Prostate Specific Antigen 4 Months C61 - Malignant neoplasm of prostate Medications: New tadalafil [facility] [address] [id number] 5 mg PO DAILY 90 days 90 tabs 1RF 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 No major barriers to patient understanding were identified. An opportunity to ask questions regarding the treatment plan was provided. All questions were answered. The patient expressed understanding and agreement with the above treatment plan. The patient is aware they should contact our office by phone for worsening of their current condition or the appearance of new urologic symptoms. Compliance is encouraged with any medications and followup testing that is ordered. It is a privilege to participate in the urologic care of your patient. If you have any questions or concerns regarding treatment for the above conditions, or other urologic issues, please do not hesitate to contact me. The office telephone contact is [phone]. This note is constructed using voice recognition software. While every effort has been made to ensure accuracy tinter photograph errors may have been included. Yours sincerely, Dr Leroy Hale MD, [facility] - Urology Providers of Expert, Compassionate Care for the Genitourinary System Coding Level of Care Code Est Pt Level 4 (68063) Diagnoses Prostate cancer C61
== END 2024-09-20 14:16 | disposition home or self-care (01) ==
PROVIDERS: PCP Nurse Practitioner Family; Visit Provider Urology
DX: C61 Malignant neoplasm of prostate (principal)
CPT/HCPCS: 99214

== ENCOUNTER → 2024-09-20 13:27 | Outpatient (BNVA) | payer MEDICARE, SELFPAY | PROVIDERS: PCP Nurse Practitioner Family; Visit Provider Urology | DX: C61 Malignant neoplasm of prostate (principal) | CPT/HCPCS: 99212 ==

== ENCOUNTER 2024-11-27 08:54 | Outpatient (AMB) | payer MEDICARE, SELFPAY ==
--- NOTE | 2024-11-27 08:55 | A.OFFVIS_ITS ---
Intake Vital Signs 11/27/24 08:56 Height 5 ft 11 in Weight 260 lb BMI 36.3 BP 122/78 Blood Pressure Location Lt brachial Position Sitting Pulse 76 Pulse Source Pulse Oximeter Pulse Oximetry (%) 96 Intake Visit Reasons: Resched from 10/22: [facility] G0439 Intake Note: pt is here for MWV Ice Cream Maker Required: No Accompanied by: Self / Same As Patient Allergies No Known Allergies [No Known Allergies*] Allergy (Verified 11/27/24 08:56) Medication List - Last Reconciled 11/27/24 by KEISHA Lezama- alcohol swabs 1 pad topical BID allopurinol 300 mg PO DAILY alprazolam 1 mg PO BID PRN 4 days atorvastatin 10 mg PO BEDTIME 100 days blood sugar diagnostic ([employer] test strips) TID testing blood-glucose meter ([employer] Verio Meter) TID testing empagliflozin (Jardiance) 10 mg PO DAILY finasteride 5 mg PO DAILY lancets TID testing lisinopril 10 mg PO DAILY 90 days metformin 1,000 mg PO BID 90 days metoprolol tartrate 12.5 mg (1/2 x 25 mg) PO BID omeprazole 20 mg PO DAILY tadalafil 5 mg PO DAILY 90 days tadalafil 20 mg PO ONCE PRN 30 days terazosin 5 mg PO BEDTIME 90 days tramadol 50 mg PO DAILY PRN 14 days Do you need a note to return to daycare/school/sports/work: No HPI Resched from 10/22: [facility] G0439 HPI Details AWV: PPP filled out and in scan pile. CCC partially filled out. Pt follows up with urology, and i will refer to gastro for colon screen (due) Chief Complaint Intermittent neuropathy in bilateral feet and diabetes follow-up. History of Present Illness The patient is a 69-year-old male presenting with a follow-up for diabetes management and evaluation of neuropathy. The patient reports experiencing intermittent neuropathy affecting both feet. In conjunction, he describes symptoms of increased urination. His diabetes management continues to be a focus, with today's glycated hemoglobin (A1c) result being 7.3%. Previously, interventions for diabetes have included lifestyle adjustments and medications. The progression of diabetes management aims to improve glycemic control and mitigate complications, including neurological symptoms. Additionally, there is a history of toenail changes, notably onychomycosis, affecting the toenails, predominantly the larger toenails bilaterally. The patient also reports the presence of a bunion on the right foot, which is monitored for changes or discomfort. Social History - No social determinants were discussed during the conversation. Health Maintenance - Vaccinations are reported to be up to date. - Advised to obtain a flu vaccination at a pharmacy. Review of Systems - Neurological: Reports intermittent christian ropathy in bilateral feet. - Genitourinary: Reports increased urina tion. Physical Exam General: Cooperative, healthy appearing, comfortable, no acute distress and well developed Orientation: Patient oriented x3 Limitations: No limitations Head: Normal to inspection Ears: Hearing grossly normal bilaterally Nose: Normal external nose present Face and sinus: Normal facial exam Eyes: Appearance normal, both eyes and all related structures Neck: Normal visual inspection and Yes full ROM Respiratory: Normal respiratory effort and able to speak in complete sentences. Clear to auscultation bilaterally Cardiovascular: Regular rate and rhythm. Normal S1 and S2 GI: Normal to inspection. Soft to palpation and nontender Skin: No rashes or lesions noted Neuro: Patient oriented x3 Extremities: Feet were intact except for onychomycosis noted to toenails, espec ially big toenails, bilaterally. Right foot bunion noted. Positive sensation with the use of monofilament bilaterally. Results - Labs: Glycated hemoglobin (A1c) is 7.3 %. Plan - Initiate treatment with Jardiance, 10 mg daily, to improve glycemic control. - Encourage the patient to schedule an e ye exam for diabetic retinopathy screening. - Monitor for any progression in neuropa thic symptoms and onychomycosis. - Consider podiatry consultation if the bunion becomes symptomatic. Patient was informed and verbally consented to the use of an ambient scribe for clinic note documentation during this visit. Discussion Notes During the visit, I discussed that the patient?s A1c level is 7.3%, and starting Jardiance at 10 mg daily is advised to aid in managing blood glucose levels. The benefits of this medication include reducing the risk of cardiovascular events and aiding in glycemic control. We also discussed the importance of regular eye exams to check for diabetic retinopathy, reinforcing the need for ongoing monitoring of foot health. The patient was informed that alternative options are available if Jardiance does not adequately control blood glucose levels. I encouraged the patient to receive a flu vaccination at the pharmacy and maintain up-to-date immunizations as part of overall health maintenance. Patient Instructions - Start Jardiance as prescribed, one tab let (10 mg) daily. - Schedule an eye exam for diabetic reti nopathy. - Monitor any changes in foot sensation or skin condition. - Receive a flu vaccination at a pharmac y. - Follow a balanced diet and engage in r egular physical activity as tolerated. [facility] Medical History 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 difficile diarrhea HTN (hypertension) Anxiety JACINDA (obstructive sleep apnea) GERD (gastroesophageal reflux disease) COVID-19 Surgical History H/O inguinal hernia repair Hx of umbilical hernia repair History of hernia repair Family History Father No problems noted. Mother No problems noted. Sister Cancer Sister No problems noted. Brother Diabetes mellitus Brother No problems noted. Brother No problems noted. Brother No problems noted. Brother No problems noted. Daughter No problems noted. Son No problems noted. Son No problems noted. Social History Household Members: Spouse Housing: House Alcohol intake: current Alcohol intake frequency: holidays/special occasions only Alcohol type: hard liquor Patient Tobacco Use Status: Former Tobacco user Years Smoked: 20 yrs e-Cigarette/Vaping Use: Never Used Second Hand Smoke Exposure: No service: No Current occupational status: retired Cognitive needs: No Hearing needs: No Vision needs: Yes Questionnaire Medicare Wellness Checkup What [age] 65-70 What gender do you identify with?: male During the past 4 weeks, how much have you been bothered by emotional problems such as feeling anxious, depressed, irritable, sad or downhearted, and blue?: not at all During the past 4 weeks, has your physical & emotional health limited your social activities with family, friends, neighbors, or groups?: not at all During the past 4 weeks, how much bodily pain have you generally had?: moderate pain During the past 4 weeks, was someone available to help you if you needed & wanted help?: yes, as much as I wanted During the past 4 weeks, what was the hardest physical activity you could do for at least 2 minutes?: moderate Can you get to places out of walking distance without help? (For eg., can you travel alone on buses, taxis or drive your car?): Yes Can you go shopping for groceries or clothes without someone's help?: Yes Can you prepare your own meals?: Yes Can you do your housework without help?: Yes Because of any health problems, do you need the help of another person with your personal care needs such as eating, bathing, dressing or getting around the house?: No Can you handle your own money without help?: Yes During the past 4 weeks, how would you rate your health in general?: fair During the past 4 weeks how have things been going for you?: good & bad parts about equal Are you having difficulties driving your car?: no Do you always fasten your seat belt when you are in a car?: yes, usually During past 4 weeks, have you been bothered by the following: never: Trouble eating well?, Teeth or denture problems? and Problems using the telephone?, sometimes: Falling or dizzy when standing up and Tiredness or fatigue? and often: Sexual problems? Have you fallen 2 or more times in the past year?: No Are you afraid of falling?: Yes Are you a smoker?: no During the past 4 weeks, how many drinks of wine, beer, or other alcoholic beverages did you have?: 1 drink or less per week Do you exercise for about 20 minutes 3 or more times a week?: yes, all the time Have you been given information to help with the following?: yes: Hazards in your house that might hurt you? and yes: Keeping track of your medications? How often do you have trouble taking medicines the way you have been told to take them?: I always take medicine as prescribed How confident are you that you can control & manage most of your health problems?: very confident What is your race?: Mini Mental State Exam (MMSE) Orientation What is the (year) (season) (date) (day) (month)?: year, season, day and month Where are we (state) (county) (town or city) (hospital) (floor)?: state, county, town or city, hospital/clinic and floor Registration Name of 3 unrelated objects clearly and slowly, then ask patient to repeat all 3 of them. (1st repeat determines score. Make sure they can repeat all three): object 1, object 2 and object 3 Attention & Calculation (CHOOSE ONE) Spell WORLD backwards (DLROW): 5 letters Recall Ask patient to repeat the 3 items from question #3.: object 1, object 2 and object 3 Language Show patient a wristwatch & ask what it is. Repeat for pencil.: watch and pencil Ask the patient to repeat the phrase 'No ifs, ands, or buts' after you.: correct Ask the patient to 'take a piece of paper with their right hand' 'fold paper in half' 'place paper on floor': take paper in right hand, fold paper in half and place paper on floor Print the sentence 'CLOSE YOUR EYES' on a piece. If patient actually closes eyes then score.: followed written direction Give patient a blank piece of paper & ask to write a sentence. Score if it contains a noun & verb.: sentence contains subject and verb Ask patient to copy figure of intersecting pentagons exactly. Score if all 10 angles & 2 intersects are included.: all 10 angles present & 2 are intersected Score Score: 29 Activity of Daily Living Bathing - sponge bath, tub bath or shower: receives no assistance (gets in/out by self, if usual bathing means Dressing - getting clothes from closets & drawers, including inner/outer garments & fasteners.: gets clothes & gets completely dressed without help Toileting - going to the 'toilet room' for urine/bowel elimination & cleaning self/arranging clothes: goes to toilet room, cleans self, arranges clothes without help Transfer: moves in & out of bed and chair without help (may use support object) Continence: controls urination/bowel movements completely by self Feeding: feeds self without help Total Score: 0 Information obtained from: patient Using telephone: independent Traveling: independent Shopping: independent Preparing meals: independent Housework: independent Taking medicine: independent Managing money: independent PHQ-9 Over the last 2 weeks, how often have you been bothered by any of the following problems? 1. Little interest or pleasure in doing things: not at all 2. Feeling down, depressed, or hopeless: not at all 3. Trouble falling or staying asleep, or sleeping too much: not at all 4. Feeling tired or having little energy: not at all 5. Poor appetite or overeating: not at all 6. Feeling bad about yourself - or that you are a failure or have let yourself or your family down: not at all 7. Trouble concentrating on things, such as reading the newspaper or watching television: not at all 8. Moving or speaking so slowly that other people could have noticed. Or the opposite - being so fidgety or restless that you have been moving around a lot more than usual: not at all 9. Thoughts that you would be better off or of hurting yourself in some way: not at all Total score: 0 Depression Screening Interpretation: Negative Depression Screening Done: Yes 05661 - PHQ-9 Billing: Yes Source: Developed by Drs. Guanakito Lynn, Eryn Arredondo, Severo Valle and colleagues, with an educational natan from [employer]. KATH-7 AMB Questionnaire KATH-7 Date KATH - 7 assessed: 11/27/24 Feeling nervous, anxious, or on edge: 1 = Several days Not being able to stop or control worryin = Several days Worrying too much about different things: 0 = Not at all Trouble relaxin = Several days Being so restless that it is hard to sit still: 1 = Several days Becoming easily annoyed or irritable: 1 = Several days Feeling afraid as if something awful might happen: 1 = Several days Total KATH-7 score (0-4 normal; 5-9 mild; 10-14 moderate; 15-21 severe): 6 Source: Developed by Drs. Guanakito Lynn, Eryn Arredondo, Severo Valle and colleagues, with an educational natan from [employer]. KATH-7 Assessment Billing KATH-7 Assessment Tool: KATH-7 Assessment 01967 Physical Exam Vital Signs: Last Vital Signs Pulse 76 11/27/24 08:56 BP 122/78 11/27/24 08:56 Pulse Ox 96 11/27/24 08:56 BMI result Body Mass Index 36.3 Neuro Other: able to stand from sitting position, neg rhomberg, passed whisper test, able to tandem walk Results AMB Hemoglobin A1c AMB Hemoglobin A1c 7.3 % Last Edit by Sumit Oakes CMA on 11/27/24 09: 13 Results Reviewed Results Reviewed: Laboratory Last Values Hgb A1c (Clinic) 7.3 % (4.0-6.0) H 11/27/24 09:13 Assessment & Plan Assessment & Plan (1) Diabetes: Code(s): E11.9 - Type 2 diabetes mellitus without complications (2) Screening for colon cancer: Code(s): Z12.11 - Encounter for screening for malignant neoplasm of colon (3) Encounter for annual wellness visit (AWV) in Medicare patient: Code(s): Z00.00 - Encounter for general adult medical examination without abnormal fi ndings Plan . Orders: Orders Complete Blood Count Auto Diff Today E11.9 - Type 2 diabetes mellitus without complications Comprehensive [place]. Panel Fast Today E11.9 - Type 2 diabetes mellitus without complications Lipid Panel Today E11.9 - Type 2 diabetes mellitus without complications AMB Hemoglobin A1c Today Z13.9 - Encounter for screening, unspecified Microalbumin, Random (w Creat) Today E11.9 - Type 2 diabetes mellitus without complications TSH reflex Free T4 Today E11.9 - Type 2 diabetes mellitus without complications UA CC w/rflx Micro + Cult Today E11.9 - Type 2 diabetes mellitus without complications Referrals Gastroenterology Referral Z12.11 - Encounter for screening for malignant neoplasm of colon Medications: New empagliflozin (Jardiance) 10 mg PO DAILY 90 tabs 0RF Refilled lisinopril 10 mg PO DAILY 90 days 90 tabs 1RF metoprolol tartrate 12.5 mg (1/2 x 25 mg) PO BID 90 tabs 1RF Quality Reporting (2019) Depression/Bipolar (159/160/161/177) PHQ-9: Total score: 0 Coding Level of Care Code Medicare First (G0438) Est Pt Level 3 (25982) Diagnoses Diabetes E11.9 Screening for colon cancer Z12.11 Encounter for annual wellness visit (AWV) in Medicare patient Z00.00 CPT Codes Advance Care Planning - Time spent: 1-15 minutes, on File ([id number]) Additional Codes KATH-7 Assessment Billing - KATH-7 Assessment Tool: KATH-7 Assessment 77148 ([id number]) PHQ-9 - 62940 - PHQ-9 Billing: Yes ([id number]) Advance Care Planning Forms completed: Health Care Proxy (form given to pt and explained), MOLST (form given to pt and explained) and Living will (encouraged to have done) Time spent: 1-15 minutes, on File Actual minutes spent: 12
[2024-11-27 08:56] VITALS: BP 122/78; PULSE 76; O2SAT 96; BMI 36.3
== END 2024-11-27 09:33 | disposition home or self-care (01) ==
PROVIDERS: PCP Nurse Practitioner Family; Visit Provider Nurse Practitioner Family
DX: Z00.00 Encounter for general adult medical examination without abnormal findings (principal); E11.9 Type 2 diabetes mellitus without complications; Z12.11 Encounter for screening for malignant neoplasm of colon

== ENCOUNTER → 2024-11-27 08:54 | Outpatient (BNVA) | payer MEDICARE, SELFPAY | PROVIDERS: PCP Nurse Practitioner Family; Visit Provider Nurse Practitioner Family | DX: Z00.00 Encounter for general adult medical examination without abnormal findings (principal); E11.40 Type 2 diabetes mellitus with diabetic neuropathy, unspecified | CPT/HCPCS: 83036; 96127; 99212 ==

== ENCOUNTER 2025-01-20 07:12 | Outpatient (REF) | payer MEDICARE, SELFPAY ==
--- OUTSIDE RECORDS SUMMARY | 2025-01-20 07:19 | XMS_ITS | Encounter Summary ---
Author Organization [facility] Address [address] [place] [address] Care Team Providers Care Carroting Machine Offbearer Name Role Phone Gopi Gutierrez MD Primary Care Provider [phone] Encounter Details Date Type Department Care Team (Late st Contact Info) Description 03/07/2023 Scanned Document [facility] UROLOGY SCAN Talat Ambrocio MD [address] [place] [address] Social History Tobacco Use Types Packs/Day Years Used Date Smoking Tobacco: Never Assessed Sex and Gender Information Value Date Recorded Sex Assigned at Not on file Gender Identity Not on file Sexual Orientation Not on file documented as of this encounter Plan of Treatment Not on file documented as of this encounter Visit Diagnoses Not on filedocumented in this encounter Care Teams Carroting Machine Offbearer Relationship Specialty Start Date End Date Gopi Gutierrez MD [address] [facility] [place] [address] PCP - General Family Medicine 02/17/23 documented as of this encounter
--- OUTSIDE RECORDS SUMMARY | 2025-01-20 07:20 | XMS_ITS | Encounter Summary ---
Author Organization [facility], Address [address] [place] [address] Phone Care Team Providers Care Division Manager Name Role Phone Gopi Gutierrez NP Primary Care Provider [phone] Encounter Details Date Type Department Care Team (Late st Contact Info) Description 04/27/2022 Documentation Only [facility], [address] [place] [phone] Bakari Patel MD [address] [place] [phone] Social History Tobacco Use Types Packs/Day Years Used Date Smoking Tobacco: Unknown Sex and Gender Information Value Date Recorded Sex Assigned at Not on file Legal Sex Male 2:32 PM EST Gender Identity Not on file Sexual Orientation Not on file documented as of this encounter Plan of Treatment Not on file documented as of this encounter Visit Diagnoses Not on filedocumented in this encounter Care Teams Division Manager Relationship Specialty Start Date End Date Gopi Gutierrez NP [address] [place] [address] PCP - General Nurse Practitioner 09/21/20 documented as of this encounter
--- OUTSIDE RECORDS SUMMARY | 2025-01-20 07:20 | XMS_ITS | Encounter Summary ---
Author Organization [facility], Address [address] [place] [address] Phone Care Team Providers Care Furniture Detailer Name Role Phone Gopi Gutierrez NP Primary Care Provider [phone] Encounter Details Date Type Department Care Team (Late st Contact Info) Description 12/30/2021 Documentation Only [facility], [address] [place] [place] [phone] Bakari Patel MD [address] [place] [phone] Social History Tobacco Use Types Packs/Day Years [...] on filedocumented in this encounter Care Teams Furniture Detailer Relationship Specialty Start Date End Date Gopi Gutierrez NP [address] [place] [address] PCP - General Nurse Practitioner 09/21/20 documented as of this encounter
--- OUTSIDE RECORDS SUMMARY | 2025-01-20 07:20 | XMS_ITS | Clinical Summary ---
Author Organization [facility], Address [address] [place] [address] [place] [address] Phone Care Team Providers Care Register Of Wills Name Role Phone Gopi Gutierrez NP Primary Care Provider [phone] Allergies No known active allergies Medications lisinopril (PRINIVIL,ZESTR IL) 10 MG tablet Take 10 mg by mouth 1 (one) time each day Active metoprolol tartrate (LOPRESSOR) 25 MG tablet Take 25 mg by mouth 2 (two) times a day Active allopurinol (ZYLOPRIM) 300 MG tablet Take 300 mg by mouth 1 (one) time each day Active traMADol (ULTRAM) 50 MG tablet Take 50 mg by mouth every 6 (six) hours if needed Active omeprazole (PriLOSEC) [address] capsule 04/23/2022 Activ e metFORMIN (GLUCOPHAGE) 500 MG tablet 04/22/2022 Activ e atorvastatin (LIPITOR) 10 MG tablet Take 10 mg by mouth at bed time at bedtime 02/24/2022 Active Active Problems Problem Noted Date Diagnosed Date Hypertension 10/07/2020 Acute nontraumatic kidney injury, not otherwise specified 10/07/2020 Social History Tobacco Use Types Packs/Day Years Used Date Smoking Tobacco: Unknown Sex and Gender Information Value Date Recorded Sex Assigned at Not on file Legal Sex Male 2:32 PM EST Gender Identity Not on file Sexual Orientation Not on file Plan of Treatment Health Maintenance Due Date Last Done Comments Colorectal Cancer Screening: Annual FOBT 2005 Colorectal Cancer Screening: Colonoscopy 2005 Colorectal Cancer Screening: Sigmoidoscopy 2005 Pneumococcal Vaccine: 65+ Ye ars (1 of 1 - PCV) 2021 Influenza Vaccine (#1) 2024 Hepatitis B Vaccine Aged Out No longe r eligible based on patient's age to complete this topic Insurance [employer] Care Teams Register Of Wills Relationship Specialty Start Date End Date Gopi Gutierrez NP [address] [place] [address] PCP - General Nurse Practitioner 09/21/20
--- OUTSIDE RECORDS SUMMARY | 2025-01-20 07:20 | XMS_ITS | Clinical Summary ---
Author Organization [facility] Address [address] [place] [address] Care Team Providers Care Seat Cover Installer Name Role Phone Gopi Gutierrez MD Primary Care Provider Social History Tobacco Use Types Packs/Day Years Used Date Smoking Tobacco: Never Assessed Sex and Gender Information Value Date Recorded Sex Assigned at Not on file Gender Identity Not on file Sexual Orientation Not on file Plan of Treatment Health Maintenance Due Date Last Done Comments Hepatitis C Virus Screening 1956 DTaP/Tdap/Td Vaccines (1 - Tdap) 1975 Colonoscopy 2001 Pneumococcal Vaccines 50+ (1 of 1 - PCV) 2006 Zoster (Shingles) Vaccine (1 of 2) 2006 Influenza Vaccine 06/13/2024 COVID-19 Vaccine ( - 2023-2 5 season) 2024 RSV Vaccine 60 years and old er and Patients (1 - 1-dose 75+ series) 2031 Hepatitis B Vaccines Aged Out No long er eligible based on patient's age to complete this topic Care Teams Seat Cover Installer Relationship Specialty Start Date End Date Gopi Gutierrez MD [address] [facility] [place] [address] PCP - General Family Medicine 02/17/23
[2025-01-20 10:32] LABS: MANUAL DIFF FLAG NO
[2025-01-20 10:34] LABS: Basophils Percent Auto 0.6 % (0-2); Eosinophils Absolute Auto 0.2 X10*3/uL (0.0-0.4); Eosinophils Percent Auto 4.2 % (0-4); Hematocrit 42.6 % (42.0-52.0); Hemoglobin 13.6 g/dl (14.0-18.0); Imm Gran Abs Auto 0.01 X10*3/uL (0.00-0.03); Imm Gran Pct Auto 0.2 % (0.0-0.4); Mean Corpuscular HGB Conc 31.9 g/dl (31.0-36.0); Mean Corpuscular Hemoglobin 29.2 pg (27.0-33.0); Mean Corpuscular Volume 91.4 fL (80.0-98.0); Mean Platelet Volume 10.1 fL (9.4-12.4); Monocytes Absolute Auto 0.6 X10*3/uL (0.1-1.2); Monocytes Percent Auto 11.9 % (2-11); Neutrophils Absolute Auto 2.4 x10*3/uL (2.0-8.3); Neutrophils Percent Auto 45.1 % (45-73); Platelet Count 201 X10*3/uL (160-400); Red Blood Count 4.66 X10*6/uL (4.60-5.80); Red Cell Distribution Width 13.9 % (11.0-16.0); White Blood Count 5.3 X10*3/uL (4.8-10.8)
[2025-01-20 11:00] LABS: Alanine Aminotransferase 30 U/L (0-40); Albumin Level 4.2 g/dL (3.5-5.0); Alkaline Phosphatase 61 U/L (39-117); Anion Gap 11 (12-20); Aspartate Amino Transferase 28 U/L (5-37); Bilirubin Total 0.3 mg/dL (0.0-1.0); Blood Urea Nitrogen 17 mg/dL (9-16); Calcium 9.5 mg/dL (8.4-10.2); Carbon Dioxide 27 mmol/L (22-29); Chloride 107 mmol/L (96-108); Cholesterol 130 mg/dL (<200); Estimated Glomerular Filt Rate > 60; Glucose Fasting 128 mg/dL (60-99); HDL Cholesterol 58 mg/dL (>40); LDL Cholesterol Calculated 44 mg/dL (<100); Potassium 4.8 mmol/L (3.3-5.1); Sodium 140 mmol/L (135-145); Total Protein 7.8 g/dL (6.5-8.0); Triglycerides 140 mg/dL (<150)
[2025-01-20 11:04] LABS: Appearance Urine Clear; Color Urine Yellow; Glucose Urine UA Negative (Negative); Leukocyte Esterase Urine Small (1+) (Negative); Nitrite Urine Negative (Negative); PH 5.5 (5.0-9.0); UMIC TRIGGER UACC YES; Urine Blood Small (1+) (Negative); Urine Ketones Negative (Negative); Urine Protein Negative (Neg-Trace)
[2025-01-20 11:13] LABS: Bacteria Urine Trace (None Seen); Hyaline Casts Urine 0-2 /LPF (0-2); Squamous Epithelial Cell Urine 0-2 /HPF (0-2); UACC Culture Trigger YES; WBC Urine 21-50 /HPF (0-5)
[2025-01-20 11:17] LABS: Prostate Specific Antigen < 0.10 ng/mL (<0.05-4.0)
[2025-01-20 12:38] LABS: Creatinine Urine 182.88 mg/dL; Microalbum/Creatinine Ratio Ur 18.5 ug/mg cr (<30)
== END 2025-01-20 07:13 | disposition home or self-care (01) ==
LOC: HO.HMGCLDS 07:12
PROVIDERS: PCP Nurse Practitioner Family; Visit Provider Urology
DX: E11.9 Type 2 diabetes mellitus without complications (principal); C61 Malignant neoplasm of prostate; Z12.5 Encounter for screening for malignant neoplasm of prostate
CPT/HCPCS: 36415; 80053; 80061; 81001; 81003; 82043; 82570; 84153; 84443; 85025; 87086; 87088; 87186

== ENCOUNTER 2025-01-31 09:12 | Outpatient (AMB) | payer MEDICARE, SELFPAY ==
--- NOTE | 2025-01-31 09:17 | A.OFFVIS_ITS ---
Intake Visit Reasons: 4m/ PSA Intake Note: Patient is present for 4M/PSA Urology Medication:TERAZOSIN,TADALFIL,ALLOPURINOL,FINASTERIDE Antibiotic Allergy:NONE Blood Thinner:NONE Cooking Teacher Required: No Allergies No Known Allergies [No Known Allergies*] Allergy (Verified 01/31/25 09:18) HPI Comments Details: Leonor very pleasant Israeli male. He is a patient of Dr. Ward. He is seen for the following urologic conditions - prostate cancer - lower urinary tract symptoms - erectile dysfunction Telemedicine Evaluation 15 min Consultation [employer] Video Four month follow-up PSA well controlled Repeat labs in 6 months with testosterone Had sore back and does respond to ibuprofen 800 Refill medications Increase dose tadalafil. Has minimal response to 5 mg daily. Try 10 mg daily with 20 mg on demand. PSA 01/06 <0.1 T 23, 06/05 <0.1 T 142, 10/06 <0.1, 02/04 <0.1 Lower urinary tract symptoms Urgency and frequency Nocturia x3 Progressive Prostate Cancer - unfavorable intermediate, low volume, clinically localized, Grade Group 3, GnRH 04/04 EXBRT PSA 2018 5.4 prior negative biopsy, 12/05 5.9 06/04 EXBRT with GnRH with Space Oar 01/05 - 4+3=7 (right mid medial 15%, right apex medial 70%) 3+4=7 (left apex medial 30%) 3+3=6 (left mid medial 5%) Tumor quantitation: Number cores positive: 4 Total number of cores: 12 % of tissue involved: 10% of all tissue examined Periprostatic fat inv.:Not dalia ntified Seminal vesicle inv.: Not identified Perineural inv.: Present LVI: Not identified Staging - 02/02 MRI PI-RADS 4 right apical 1 cm lesion, no evidence ARLEEN - 02/02 bone scan negative Erectile Dysfunction - background of diabetes Progressive after radiation Current therapy 10 mg daily with 20 mg on demand PFSH Medical History 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 difficile diarrhea HTN (hypertension) Anxiety JACINDA (obstructive sleep apnea) GERD (gastroesophageal reflux disease) COVID-19 Surgical History H/O inguinal hernia repair Hx of umbilical hernia repair History of hernia repair Family History Father No problems noted. Mother No problems noted. Sister Cancer Sister No problems noted. Brother Diabetes mellitus Brother No problems noted. Brother No problems noted. Brother No problems noted. Brother No problems noted. Daughter No problems noted. Son No problems noted. Son No problems noted. Social History Household Members: Spouse Housing: House Alcohol intake: current Alcohol intake frequency: holidays/special occasions only Alcohol type: hard liquor Patient Tobacco Use Status: Former Tobacco user Years Smoked: 20 yrs e-Cigarette/Vaping Use: Never Used Second Hand Smoke Exposure: No service: No Current occupational status: retired Cognitive needs: No Hearing needs: No Vision needs: Yes Review of Systems Const All systems reviewed & are unremarkable except as noted in HPI and below Reports no additional complaints Resp Reports no additional complaints GI Reports no additional complaints Reports as per HPI Musc Reports no additional complaints Physical Exam Telemedicine evaluation Appropriate responses Regular breathing rate and rhythm HEENT Head: Yes normal to inspection Ears: hearing grossly normal bilaterally Eyes General: appearance normal, both eyes and all related structures Neck Neck: Yes normal visual inspection Chest Chest palpation & inspection: normal inspection of the chest Resp Effort & Inspection: normal respiratory effort and able to speak in complete sentences Telehealth Telehealth Telehealth Platform: [facility] Location of provider rendering services: practice address Location of patient: address on file Patient Identification confirmed using: Name, : Yes Telehealth method: video Patient verbally consented to treatment: Yes Patient verbally consented to billing insurance company: Yes Patient informed of any privacy concerns related to visit: Yes Minutes spent on Phone/Video with Pt.: 15 Assessment & Plan Assessment & Plan (1) Prostate cancer: Comment: 01/05 Gl 4+3, unfavorable intermediate, clinically localized Code(s): C61 - Malignant neoplasm of prostate Category: Medical (2) Erectile dysfunction: Code(s): N52.9 - Male erectile dysfunction, unspecified Category: Medical Qualifiers: Erectile dysfunction type: vasculogenic Vasculogenic erectile dysfunction 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 Qualified Code(s): N52.03 - Combined arterial insufficiency and corporo-venous occlusive erectile dysfunction Plan Move to six-month follow-up Orders: Orders Prostate Specific Antigen 6 Months C61 - Malignant neoplasm of prostate Testosterone, Total 6 Months C61 - Malignant neoplasm of prostate Medications: New ibuprofen 800 mg PO Q8H 90 days PRN 90 tabs 0RF pain M54.5 - Low back pain Refilled tadalafil [facility] Group [facility] [address] [id number] 5 mg PO DAILY 90 days 90 tabs 1RF N52.03 - Combined arterial insufficiency and corporo-venous occlusive erectile dysfunction tadalafil Use 60 min prior to intended activity [facility] Group [facility] [address] [id number] 20 mg PO ONCE 30 days PRN 30 tabs 1RF sexual activity N52.03 - Combined arterial insufficiency and corporo-venous occlusive erectile dysfunction Patient Instructions: This note is constructed using voice recognition software. While every effort has been made to ensure accuracy sociocultural anthropology professor errors may have been included. Imaging studies, laboratory and physical exam results were discussed and reviewed in detail. No major barriers to patient understanding were identified. An opportunity to ask questions regarding the treatment plan was provided. All questions were answered. The patient expressed understanding and agreement with the above treatment plan. The patient is aware they should contact our office by phone for worsening of their current condition or the appearance of new urologic symptoms. Compliance is encouraged with any medications and followup testing that is ordered. It is a privilege to participate in the urologic care of your patient. If you have any questions or concerns regarding treatment for the above conditions, or other urologic issues, please do not hesitate to contact me. The office telephone contact is [phone]. Sincerely, Dr Leroy Hale MD, [facility] - Urology Compassionate Specialist Care for the Genitourinary System Coding Level of Care Code Tele Est Pt Level 4 (01070) Complex EM visit Add On G2211 Diagnoses Prostate cancer C61 Combined arterial insufficiency and corporo-venous occlusive erectile dysfunction N52.03 Erectile dysfunction type: vasculogenic Vasculogenic erectile dysfunction 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
== END 2025-01-31 10:04 | disposition home or self-care (01) ==
LOC: HO.HUSH 09:12
PROVIDERS: PCP Nurse Practitioner Family; Visit Provider Urology
DX: C61 Malignant neoplasm of prostate (principal); N52.03 Combined arterial insufficiency and corporo-venous occlusive erectile dysfunction
CPT/HCPCS: 99214; G2211

== ENCOUNTER → 2025-01-31 09:12 | Outpatient (BNVA) | payer MEDICARE, SELFPAY | PROVIDERS: PCP Nurse Practitioner Family; Visit Provider Urology ==

== ENCOUNTER 2025-04-02 09:59 | Outpatient (AMB) | payer MEDICARE, SELFPAY ==
[2025-04-02 10:01] VITALS: BP 124/76; PULSE 76; O2SAT 97; BMI 35.8
--- NOTE | 2025-04-02 10:01 | A.OFFPC_ITS ---
Vital Signs 04/02/25 10:01 Height 5 ft 11 in Weight 257 lb BMI 35.8 BP 124/76 Blood Pressure Location Rt brachial Position Sitting Pulse 76 Pulse Source Pulse Oximeter Pulse Oximetry (%) 97 Oxygen Delivery Method Room Air Intake Visit Reasons: 4 months follow up Stone Polisher Machine Required: No Accompanied by: Self / Same As Patient Allergies No Known Allergies [No Known Allergies*] Allergy (Verified 04/02/25 10:01) Medication List - Last Reconciled 04/02/25 by SINAN Lezama alcohol swabs 1 pad topical BID allopurinol 300 mg PO DAILY alprazolam 1 mg PO BID PRN 4 days atorvastatin 10 mg PO BEDTIME 100 days blood sugar diagnostic ([employer] Verio test strips) TID testing blood-glucose meter ([employer] Verio Meter) TID testing empagliflozin (Jardiance) 10 mg PO DAILY ibuprofen 800 mg PO Q8H PRN 90 days lancets TID testing lisinopril 10 mg PO DAILY 90 days metformin 1,000 mg PO BID 90 days metoprolol tartrate 12.5 mg (1/2 x 25 mg) PO BID omeprazole 20 mg PO DAILY tadalafil 5 mg PO DAILY 90 days tadalafil 20 mg PO ONCE PRN 30 days terazosin 5 mg PO BEDTIME 90 days tramadol 50 mg PO DAILY PRN 14 days Tobacco use date assessed: 04/02/25 Fall risk assessment: No Falls in past year Last assessed Fall Risk: 04/02/25 Dental Screening Dental Screen Date: 04/02/25 Did you have a dental visit in the last 12 months?: Yes Did you have a dental problem in the last 6 months where you did not have access to dental care?: No Was dental information given to patient?: Patient has dentist HPI 4 months follow up HPI Details Chief Complaint The patient is here for a follow-up regarding his diabetes management. History of Present Illness The patient is a 69-year-old male presenting for a follow-up appointment related to his Diabetes Mellitus management. He has been managing his condition well, with a recent A1c test result of 6.2, indicating good glycemic control. His eye examinations are current, and he experiences no neuropathy, polyuria, or polydipsia. Additionally, the patient has a history of gout, although he has not reported any recent symptoms or flare-ups associated with this condition. There are no current issues pertaining to his gout, and he denies any recent joint discomfort. NOTE: referred pt to gastro for a follow up colon screen back in november, pt reported not hearing anythign, will resubmit referral Social History Health Maintenance - A1c test result reported as 6.2, indic ating effective diabetes management. - Eye examination up to date. - Referral for repeat colonoscopy was pr eviously submitted; to be resubmitted. Review of Systems - Endocrine: Denies polyuria, polydipsia . - Neurologic: Denies neuropathy. - Ophthalmologic: Reports eye examinatio n is up to date. - Musculoskeletal: Denies recent gout ou tbreaks or symptoms. Physical Exam General: Cooperative, healthy appearing, comfortable, no acute distress and well developed Orientation: Patient oriented x3 Limitations: No limitations Head: Normal to inspection Ears: Hearing grossly normal bilaterally Nose: Normal external nose present Face and sinus: Normal facial exam Eyes: Appearance normal, both eyes and all related structures Neck: Normal visual inspection and Yes full ROM Respiratory: Normal respiratory effort and able to speak in complete sentences. Clear to auscultation bilaterally Cardiovascular: Regular rate and rhythm. Normal S1 and S2 GI: Normal to inspection. Soft to palpation and nontender Skin: No rashes or lesions noted Neuro: Patient oriented x3 Extremities: Normal to inspection, feet intact bilaterally with positive sensation using monofilament Results - Labs: A1c level at 6.2. Plan 1. I will assess the patient's uric aci d levels due to his history of gout, despite the absence of recent symptoms. Additionally, I will resubmit the referral for a repeat colonoscopy screening that appears not to have been processed previously. diabetes: well controlled currently Discussion Notes During our discussion, I informed the patient of the importance of regular laboratory evaluations to effectively manage his Diabetes Mellitus and monitor his well-being. We talked about maintaining his current lifestyle and medication regimen due to his A1c level of 6.2, which suggests excellent control of his diabetes. Moreover, we reviewed the necessity of assessing uric acid levels in light of his gout history, even though he has not experienced any recent issues. Consent was provided by the patient for a repeat colonoscopy screening, though a previous referral was not completed. Plans to resubmit this request were discussed, and the patient understood the need for its completion as part of routine health maintenance. Patient Instructions - Continue with current diabetes medicat ion and lifestyle management. - Plan follow-up lab tests in the coming months. - Monitor for any symptoms of gout flare -ups. - Follow up with the office on the statu s of the colonoscopy referral. [facility] Medical History 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 difficile diarrhea HTN (hypertension) Anxiety JACINDA (obstructive sleep apnea) GERD (gastroesophageal reflux disease) COVID-19 Surgical History H/O inguinal hernia repair Hx of umbilical hernia repair History of hernia repair Family History Father No problems noted. Mother No problems noted. Sister Cancer Sister No problems noted. Brother Diabetes mellitus Brother No problems noted. Brother No problems noted. Brother No problems noted. Brother No problems noted. Daughter No problems noted. Son No problems noted. Son No problems noted. Social History Household Members: Spouse Housing: House Alcohol intake: current Alcohol intake frequency: holidays/special occasions only Alcohol type: hard liquor Patient Tobacco Use Status: Former Tobacco user Years Smoked: 20 yrs e-Cigarette/Vaping Use: Never Used Second Hand Smoke Exposure: No service: No Current occupational status: retired Cognitive needs: No Hearing needs: No Vision needs: Yes Questionnaire Thrive Questionnaire Date Thrive assessed: 04/02/25 I am a: Patient What is your living situation today?: I have a steady place to live Within the past 12 months, did the food you bought not last and you didn't have the money to get more?: Never true Within the past 12 months, did you worry whether your food would run out before you got money to buy more?: Never true Do you have trouble paying for medicines?: No Do you have trouble getting transportation to medical appointments?: No Do you have trouble paying your heating and electricity bill?: No Do you have trouble taking care of your child, family member or friend?: No Do you have trouble with day-to-day activities such as bathing, preparing meals, shopping, managing finances, etc.?: No Are you currently unemployed and looking for a job?: No Are you interested in more education?: No Please select the resources that you would like help with: None Currently or been in a relationship where the following occur: No concerns reported THRIVE Score: 0 AUDIT C Alcohol Use Questionnaire (AUDIT-C) 1. How often do you have a drink containing alcohol?: 2-4 times a month 2. How many drinks containing alcohol do you have on a typical day when you are drinking?: 1 or 2 3. How often do you have six or more drinks on one occasion?: Never Total Score: 2 Score Reviewed/Action Taken: Yes KATH-7 AMB Questionnaire KATH-7 Date KATH - 7 assessed: 04/02/25 Feeling nervous, anxious, or on edge: 0 = Not at all Not being able to stop or control worryin = Not at all Worrying too much about different things: 0 = Not at all Trouble relaxin = Not at all Being so restless that it is hard to sit still: 0 = Not at all Becoming easily annoyed or irritable: 0 = Not at all Feeling afraid as if something awful might happen: 0 = Not at all Total KATH-7 score (0-4 normal; 5-9 mild; 10-14 moderate; 15-21 severe): 0 Source: Developed by Drs. Guanakito Lynn, Eryn Arredondo, Severo Valle and colleagues, with an educational natan from [employer]. KATH-7 Assessment Billing KATH-7 Assessment Tool: KATH-7 Assessment 75514 Physical exam (Primary Care) Vital Signs: Last Vital Signs Pulse 76 04/02/25 10:01 BP 124/76 04/02/25 10:01 Pulse Ox 97 04/02/25 10:01 Oxygen Delivery Method Room Air 04/02/25 10:01 BMI result Body Mass Index 35.8 Tobacco/Smoking Status: Tobacco use Status Tobacco use date assessed 04/02/25 04/02/25 10:02 Patient Tobacco Use Status Former Tobacco user 04/02/25 10:02 e-Cigarette/Vaping Use Never Used 04/02/25 10:02 Thrive Assessment: Date of Thrive Assessment Date Thrive assessed 04/02/25 04/02/25 10:02 Currently or been in a relationship where the following occur: No concerns reported Coding Level of Care Code Est Pt Level 3 (62229) Diagnoses Diabetes E11.9 Idiopathic chronic gout of right foot without tophus M1A.0710 Chronicity: chronic Gout etiology: idiopathic Presence of tophus: without tophus Additional Codes KATH-7 Assessment Billing - KATH-7 Assessment Tool: KATH-7 Assessment 68148 ([id number]) Assessment & Plan Assessment & Plan (1) Diabetes: Code(s): E11.9 - Type 2 diabetes mellitus without complications Category: Medical (2) Gout of right foot: Code(s): M10.9 - Gout, unspecified Category: Medical Qualifiers: Chronicity: chronic Gout etiology: idiopathic Presence of tophus: without tophus Qualified Code(s): M1A.0710 - Idiopathic chronic gout, right ankle and foot, without tophus (tophi) Plan . Orders: Orders Comprehensive [place]. Panel Fast Today E11.9 - Type 2 diabetes mellitus without complications TSH reflex Free T4 Today E11.9 - Type 2 diabetes mellitus without complications Complete Blood Count Auto Diff Today E11.9 - Type 2 diabetes mellitus without complications UA CC w/rflx Micro + Cult Today E11.9 - Type 2 diabetes mellitus without complications Lipid Panel Today E11.9 - Type 2 diabetes mellitus without complications Uric Acid Today M1A.0710 - Idiopathic chronic gout, right ankle and foot, without tophus (tophi)
--- OUTSIDE RECORDS SUMMARY | 2025-04-02 11:21 | XMS_ITS | Encounter Summary ---
Author Organization [facility] Address [address] [place] [address] Care Team Providers Care Nurse Plastics Name Role Phone Gopi Gutierrez MD Primary Care Provider [phone] Encounter Details Date Type Department Care Team (Late st Contact Info) Description 03/07/2023 Scanned Document [facility] UROLOGY SCAN Talat Ambrocio MD [address] [place] [address] Social History Tobacco Use Types Packs/Day Years Used Date Smoking Tobacco: Never Assessed Sex and Gender Information Value Date Recorded Sex Assigned at Not on file Legal Sex Male 1:46 PM EDT Gender Identity Not on file Sexual Orientation Not on file documented as of this encounter Plan of Treatment Not on file documented as of this encounter Visit Diagnoses Not on filedocumented in this encounter Care Teams Nurse Plastics Relationship Specialty Start Date End Date Gopi Gutierrez MD [address] [facility] [place] [address] PCP - General Family Medicine 02/17/23 documented as of this encounter
--- OUTSIDE RECORDS SUMMARY | 2025-04-02 11:21 | XMS_ITS | Clinical Summary ---
Author Organization [facility] Address [address] [place] [address] Care Team Providers Care Procurement Professional Logistics Name Role Phone Gopi Gutierrez MD Primary [...] Zoster (Shingles) Vaccine (1 of 2) 2006 COVID-19 Vaccine ( - 2023-2 5 season) 2024 Influenza Vaccine 06/13/2025 RSV Vaccine 60 years and old er and Patients (1 - 1-dose 75+ series) 2031 Hepatitis B Vaccines Aged Out No long er eligible based on patient's age to complete this topic Insurance [facility] [employer] [place] MEDICARE Care Teams Procurement Professional Logistics Relationship Specialty Start Date End Date Gopi Gutierrez MD [address] [place] [address] PCP - General Family Medicine 02/17/23
--- OUTSIDE RECORDS SUMMARY | 2025-04-02 11:21 | XMS_ITS | Clinical Summary ---
Author Organization [facility], Address [address] [place] [address] [place] [address] Phone Care Team Providers Care Registered Dental Hygienist Name Role Phone Gopi Gutierrez NP Primary Care Provider [phone] Allergies No known active allergies Medications lisinopril [...] Colorectal Cancer Screening: Sigmoidoscopy 2005 Pneumococcal Vaccine: 50+ Ye ars (1 of 1 - PCV) 2006 Influenza Vaccine (Season Ended) 2025 Hepatitis B Vaccine Aged Out No longe r eligible based on patient's age to complete this topic Insurance [employer] Commercial Care Teams Registered Dental Hygienist Relationship Specialty Start Date End Date Gopi Gutierrez NP [address] [place] [address] PCP - General Nurse Practitioner 09/21/20
--- OUTSIDE RECORDS SUMMARY | 2025-04-02 11:22 | XMS_ITS | Encounter Summary ---
Author Organization [facility], Address [address] [place] [address] Phone Care Team Providers Care Senior Mechanical Development Engineer Name Role Phone Gopi Gutierrez NP Primary Care Provider [phone] Encounter Details Date Type Department Care Team (Late st Contact Info) Description 12/30/2021 Documentation Only [facility], [address] [place] [phone] Bakari Patel MD [address] [place] [phone] Social History Tobacco Use Types Packs/Day Years [...] on filedocumented in this encounter Care Teams Senior Mechanical Development Engineer Relationship Specialty Start Date End Date Gopi Gutierrez NP [address] [place] [address] PCP - General Nurse Practitioner 09/21/20 documented as of this encounter
--- OUTSIDE RECORDS SUMMARY | 2025-04-02 11:22 | XMS_ITS | Encounter Summary ---
Author Organization [facility], Address [address] [place] [address] Phone Care Team Providers Care Hazardous Materials Analyst Name Role Phone Gopi Gutierrez NP Primary Care Provider [phone] Encounter Details Date Type Department Care Team (Late st Contact Info) Description 04/27/2022 Documentation Only [facility], [address] [place] [phone] Bakari Patel MD [address] [place] [phone] Social History Tobacco Use Types Packs/Day Years [...] on filedocumented in this encounter Care Teams Hazardous Materials Analyst Relationship Specialty Start Date End Date Gopi Gutierrez NP [address] [place] [address] PCP - General Nurse Practitioner 09/21/20 documented as of this encounter
== END 2025-04-02 16:30 | disposition home or self-care (01) ==
LOC: HO.HMCC 10:00
PROVIDERS: PCP Nurse Practitioner Family; Visit Provider Nurse Practitioner Family
DX: E11.9 Type 2 diabetes mellitus without complications (principal); M1A.0710 Idiopathic chronic gout, right ankle and foot, without tophus (tophi); Z13.9 Encounter for screening, unspecified

== ENCOUNTER → 2025-04-02 09:59 | Outpatient (BNVA) | payer MEDICARE, SELFPAY | PROVIDERS: PCP Nurse Practitioner Family; Visit Provider Nurse Practitioner Family | DX: E11.9 Type 2 diabetes mellitus without complications (principal); M1A.0710 Idiopathic chronic gout, right ankle and foot, without tophus (tophi) | CPT/HCPCS: 83036; 96127; 99212 ==

== ENCOUNTER 2025-04-30 13:19 | Outpatient (AMB) | payer MEDICARE, SELFPAY ==
--- NOTE | 2025-04-30 13:22 | A.OFFVIS_ITS ---
Vital Signs 04/30/25 13:23 Height 5 ft 11 in Weight 260 lb 2.327 oz BMI 36.3 BP 138/77 Blood Pressure Location Lt brachial Position Sitting Pulse 72 Intake Visit Reasons: [place] screening. Intake Note: Leonor presents in the office as a new patient for a colonoscopy screening. CC: He states that he is not having any GI concerns. Heddle Machine Operator Required: No Allergies No Known Allergies (No Known Allergies*) Allergy (Verified 04/30/25 13:24) Medication List - Last Reconciled 04/30/25 by Johana Sharpe CNP alcohol swabs 1 pad topical BID allopurinol 300 mg PO DAILY alprazolam 1 mg PO BID PRN 4 days atorvastatin 10 mg PO BEDTIME 100 days bisacodyl 5 mg PO ONCE 1 day blood sugar diagnostic (Pandoodleuch Verio test strips) TID testing blood-glucose meter (OneTouch Verio Meter) TID testing empagliflozin (Jardiance) 10 mg PO DAILY ibuprofen 800 mg PO Q8H PRN 90 days lancets TID testing lisinopril 10 mg PO DAILY 90 days metformin 1,000 mg PO BID 90 days metoprolol tartrate 12.5 mg (1/2 x 25 mg) PO BID omeprazole 20 mg PO DAILY polyethylene glycol 3350 (Miralax) 238 grams PO ONCE tadalafil 5 mg PO DAILY 90 days tadalafil 20 mg PO ONCE PRN 30 days terazosin 5 mg PO BEDTIME 90 days tramadol 50 mg PO DAILY PRN 14 days HPI HPI [place] screening.: Details: Patient is a 69-year-old male with PMH of hypertension, obesity, JACINDA, anxiety, GERD and prostate CA s/p radiation. Referred by PCP for pre colonoscopy screening. This will be Leonor's third colonoscopy, last preformed in 2019 with polyps. He reports regular BMs without difficulty, including no constipation or diarrhea. he reports pyrosis managed well with omeprazole 20 mg taken almost daily but skips occasionally. Endorses occasional exacerbation in symptoms after certain trigger foods. Patient denies: fever/chills, n/v, appetite changes, regurgitation,dysphasia, unintentional wt loss, ab pain or melena/hematochezia. Social History - Diet: Not specified; loves to eat. - Alcohol Use: Consumes Concur [place] twice every two weeks. - Tobacco Use: Quit approximately 10 years ago. -denies recreational drug use - family hx as below - personal hx of CA as above -tolerated anesthesia in the past without difficulty. [facility] Medical History (Updated 04/30/25 @ 14:12 by Johana Sharpe CNP) 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 difficile diarrhea HTN (hypertension) Anxiety JACINDA (obstructive sleep apnea) GERD (gastroesophageal reflux disease) COVID-19 Surgical History (Updated 04/30/25 @ 13:25 by AMADEO Edge) Hx of colonoscopy H/O inguinal hernia repair Hx of umbilical hernia repair History of hernia repair Family History Father No problems noted. Mother No problems noted. Sister Cancer Sister No problems noted. Brother Diabetes mellitus Brother No problems noted. Brother No problems noted. Brother No problems noted. Brother No problems noted. Daughter No problems noted. Son No problems noted. Son No problems noted. Social History Household Members: Spouse Housing: House Alcohol intake: current Alcohol intake frequency: holidays/special occasions only Alcohol type: hard liquor Patient Tobacco Use Status: Former Tobacco user Years Smoked: 20 yrs e-Cigarette/Vaping Use: Never Used Second Hand Smoke Exposure: No service: No Current occupational status: retired Cognitive needs: No Hearing needs: No Vision needs: Yes Review of Systems Const Reports as per HPI ENT Reports as per HPI Card Reports as per HPI Resp Reports as per HPI GI Reports as per HPI Reports as per HPI Physical Exam Vital Signs: Last Vital Signs Pulse 72 04/30/25 13:23 BP 138/77 04/30/25 13:23 BMI result Body Mass Index 36.3 Const General: healthy appearing, no acute distress and well developed Nutritional Appearance: well nourished Orientation/consciousness: patient oriented x3 HEENT Head: Yes normal to inspection, Yes normocephalic and Yes atraumatic Face and sinus: Yes normal facial exam Eyes General: appearance normal, both eyes and all related structures Neck Neck: Yes normal visual inspection Resp Effort & Inspection: normal respiratory effort, able to speak in complete sentences, no tracheal deviation and symmetric chest movement Auscultation: clear to auscultation bilaterally Cardio Jugular venous distension: no JVD Rate: regular rate Rhythm: regular rhythm Heart sounds: S1 normal heart sound present, S2 normal heart sound present, no gallops and no murmurs GI Inspection: Yes normal to inspection and No distended Palpation (GI): Soft to palpation, not firm, nontender and No hepatosplenomegaly present Auscultation: normal bowel sounds Neuro General: patient oriented x3 Gait exam (Neuro): Normal gait present Psych Appearance: grossly normal Mental Status: mental status grossly normal Speech and movement: Normal speech and movement present Affect: normal affect Attitude: cooperative Thought process: Normal thought process present Thought content: Normal thought content present Insight: Good insight present (Psych) Judgement: Good judgement present (Psych) Results Reviewed Results Reviewed: DATE OF SERVICE: 09/30/19 PCP: VANESSA THORNTON MD See Addendum Operative Information Pre-Op dx: colon screen Post-Op dx: Same Procedure Description:Colonoscopy Procedure: The patient was placed in the left lateral decubitis position and pre-procedure medications were administered. After a digital rectal examination of the ano-rectum, the video colonoscope was inserted into the rectum and advanced through the colon to the cecum. The colonoscope was slowly withdrawn in a retrograde panoramic fashion and the colon mucosa was carefully examined including a retroflexed view of the rectum. Findings and interventions are described below. Procedure Difficulty: Without difficulty/LLQ pressure applied to intubate the transverse colon/cecum Findings: Terminal Ileum ? Normal Cecum ? few diverticula seen including one inverted tic Ascending Colon ? few diverticula seen Transverse Colon - 2 sessile polyps 6-7 mm removed with forceps Descending Colon ? 7-8 mm sessile polyp removed with forceps Sigmoid Colon ? 8-9 mm sessile polyp removed with cold snare, diverticulosis noted Rectum ? retroflexion with moderate sized internal hemorrhoids, grade I Ano-rectum - normal Colon preparation: Good Impression and Post Procedure Diagnosis: Colonoscopy Findings: 4 Polyps removed Diverticulosis Internal Hemorrhoids on retroflexed exam. Plan: Await pathology results High fiber diet Repeat Colonoscopy interval based on path results ? in 3-5 years if polyps are adenomatous and 10 years if polyps are hyperplastic. Above findings were reviewed with the patient and relevant handouts were given in the discharge area Surgeon(s): WESLEY MIRANDA Solar Installer Technician(s): NO PHYSICIAN Anesthesia: Monitored Condition Post-Op: Good Complications: None Grafts or Implants: None Estimated blood loss: Minimal Other findings: None Daily Antibiotic Plan Daily Antibiotic Plan: Not Applicable ADDENDUM: WESLEY MIRANDA on 09/30/19 at 1040 Addendum Addendum Addendum: withdrawal time was 13 minutes Assessment & Plan Assessment & Plan (1) Screening for colon cancer: Comment: colonoscopy, complete with good prep, transverse and sigmoid tubular adenoma and ascending polypoid removed; Diverticulosis, Internal Hemorrhoids Code(s): Z12.11 - Encounter for screening for malignant neoplasm of colon Category: Medical Plan: Due for polyp surveillance colonoscopy, last screening as above. Medications: -prescriptions for laxative tablets and MiraLax sent to pharmacy; instructions for Gatorade purchase and clear liquid diet given. - understands diabetes medications will need to be held days prior to procedure. Nurse to review med holds per protocol. Patient educated on scheduling process, procedure preparation, including avoiding certain foods and ensuring clear liquid intake Advised on necessity for ride post-procedure due to sedation. (2) GERD (gastroesophageal reflux disease): Code(s): K21.9 - Gastro-esophageal reflux disease without esophagitis Category: Medical Qualifiers: Esophagitis presence: esophagitis presence not specified Qualified Code(s): K21.9 - Gastro-esophageal reflux disease without esophagitis Plan: Chronic with senior living PPI use. Additional test: upper endoscopy for comprehensive evaluation Encouraged to take omeprazole as prescribed, taken at least 30-60 minutes before a meal. Sufficient on hand with refills Education on GERD prevention : -Advised against heavy meals; encouraged small, frequent meals instead of large ones. - Instructed to remain upright for 2?3 hours after eating. - Advised to avoid late-night meals, spicy foods, caffeine, alcohol, known dietary triggers, and tight-fitting clothing. - Emphasis placed on gradual implementation of lifestyle changes to improve adherence and symptom control. Plan Follow-up after endoscopy are sooner as needed. Time: I spent a total of 20 minutes on the date of encounter which includes: Preparing to see the patient (reviewed previous documentation, test results and medical history) Performing a medically appropriate exam and/or evaluation Ordering medications, tests, and procedures Documenting clinical information in the health record Medications: New bisacodyl Take four tablets once for 1 day per colonoscopy instructions 5 mg PO ONCE 4 tabs 0RF 1 day polyethylene glycol 3350 (Miralax) per colonoscopy prep instructions 238 grams PO ONCE 238 grams 0RF Coding Level of Care Code New Pt New Pt Level 3 (58522) Patient Type New Diagnoses Screening for colon cancer Z12.11 Gastroesophageal reflux disease, unspecified whether esophagitis present K21.9 Esophagitis presence: esophagitis presence not specified
[2025-04-30 13:23] VITALS: BP 138/77; PULSE 72; BMI 36.3
--- OUTSIDE RECORDS SUMMARY | 2025-04-30 15:10 | XMS_ITS | Encounter Summary ---
Author Organization [facility] Address [address] [place] [address] Care Team Providers Care Senior Database Administrator Name Role Phone Gopi Gutierrez MD Primary Care Provider [phone] Encounter Details Date Type Department Care Team (Late st Contact Info) Description 03/07/2023 Scanned Document [facility] UROLOGY SCAN Talat Ambrocio MD [address] [place] [address] Social History Tobacco Use Types Packs/Day Years [...] filedocumented in this encounter Care Teams Senior Database Administrator Relationship Specialty Start Date End Date Gopi Gutierrez MD [address] [facility] [place] [address] PCP - General Family Medicine 02/17/23 documented as of this encounter
== END 2025-04-30 13:49 | disposition home or self-care (01) ==
LOC: HO.HGI 13:20
PROVIDERS: PCP Nurse Practitioner Family; Visit Provider Nurse Practitioner Family
DX: Z86.0100 Personal history of colon polyps, unspecified (principal); Z01.818 Encounter for other preprocedural examination; Z12.11 Encounter for screening for malignant neoplasm of colon; K21.9 Gastro-esophageal reflux disease without esophagitis
CPT/HCPCS: 99203

== ENCOUNTER → 2025-04-30 13:19 | Outpatient (BNVA) | payer MEDICARE, SELFPAY | PROVIDERS: PCP Nurse Practitioner Family; Visit Provider Nurse Practitioner Family | DX: Z01.818 Encounter for other preprocedural examination (principal); K21.9 Gastro-esophageal reflux disease without esophagitis; Z86.0100 Personal history of colon polyps, unspecified | CPT/HCPCS: 99202 ==

== ENCOUNTER 2025-07-23 06:49 | Outpatient (REF) | payer MEDICARE, SELFPAY ==
--- OUTSIDE RECORDS SUMMARY | 2025-07-23 06:52 | XMS_ITS | Clinical Summary ---
Author Organization [facility] Address [address] [place] [address] Care Team Providers Care Supervisor Data Processing Name Role Phone Gopi Gutierrez MD Primary Care Provider [phone] Social History Tobacco Use Types Packs/Day Years Used Date Smoking Tobacco: Never Assessed Sex and Gender Information Value Date Recorded Sex Assigned at Not on file Legal Sex Male 1:46 PM EDT Gender Identity Not on file Sexual Orientation Not on file Plan of Treatment Health Maintenance Due Date Last Done Comments Advance Care Planning 1955 Hepatitis C Virus Screening 1955 DTaP/Tdap/Td Vaccines [...] patient's age to complete this topic Insurance [facility] [employer] MGD MEDICARE Care Teams Supervisor Data Processing Relationship Specialty Start Date End Date Gopi Gutierrez MD [address] [place] [address] PCP - General Family Medicine 02/17/23
--- OUTSIDE RECORDS SUMMARY | 2025-07-23 06:52 | XMS_ITS | Encounter Summary ---
Author Organization [facility], Address [address] [place] [address] Phone Care Team Providers Care Epic Kaleidoscope Analyst Name Role Phone Gopi Gutierrez NP Primary Care Provider [phone] Encounter Details Date Type Department Care Team (Late st Contact Info) Description 04/27/2022 Documentation Only [facility], [address] [place] [phone] Bakari Patel MD [address] [place] [phone] Social History Tobacco Use Types Packs/Day Years [...] on filedocumented in this encounter Care Teams Epic Kaleidoscope Analyst Relationship Specialty Start Date End Date Gopi Gutierrez NP [address] [place] [address] PCP - General Nurse Practitioner 09/21/20 documented as of this encounter
--- OUTSIDE RECORDS SUMMARY | 2025-07-23 06:52 | XMS_ITS ---
Author Name [facility] Organization Unknown Care Team Organization Name Specialty Phone Email Start Date End [facility] GILES DIAZ Primary Care 03/20/2023 023
--- OUTSIDE RECORDS SUMMARY | 2025-07-23 06:52 | XMS_ITS | Clinical Summary ---
Author Organization [facility], Address [address] [place] [address] [place] [address] Phone Care Team Providers Care Informatics Physician Liaison Name Role Phone Gopi Gutierrez NP Primary Care Provider [phone] Allergies No known active allergies Medications lisinopril [...] of 1 - PCV) 2006 Influenza Vaccine (#1) 2025 Hepatitis B Vaccine Aged Out No longe r eligible based on patient's age to complete this topic Insurance [employer] Commercial Care Teams Informatics Physician Liaison Relationship Specialty Start Date End Date Gopi Gutierrez NP [address] [place] [address] PCP - General Nurse Practitioner 09/21/20
--- OUTSIDE RECORDS SUMMARY | 2025-07-23 06:52 | XMS_ITS | Encounter Summary ---
Author Organization [facility] Address [address] [place] [address] Care Team Providers Care Facing Baster Jumpbasting Name Role Phone Gopi Gutierrez MD Primary Care Provider [phone] Encounter Details Date Type Department Care Team (Late st Contact Info) Description 03/07/2023 Scanned Document [facility] UROLOGY SCAN Talat Ambrocio MD [address] [place] [address] Social History Tobacco Use Types Packs/Day Years [...] on filedocumented in this encounter Care Teams Facing Baster Jumpbasting Relationship Specialty Start Date End Date Gopi Gutierrez MD [address] [place] [address] PCP - General Family Medicine 02/17/23 documented as of this encounter
--- OUTSIDE RECORDS SUMMARY | 2025-07-23 06:52 | XMS_ITS | Encounter Summary ---
Author Organization [facility], Address [address] [place] [address] Phone Care Team Providers Care Observation Nurse Name Role Phone Gopi Gutierrez NP Primary Care Provider Encounter Details Date Type Department Care Team (Late st Contact Info) Description 12/30/2021 Documentation Only [facility], [address] [place] [phone] Bakari Patel MD [address] [place] [phone] Social History Tobacco Use Types Packs/Day Years [...] on filedocumented in this encounter Care Teams Observation Nurse Relationship Specialty Start Date End Date Gopi Gutierrez NP [address] [place] [address] PCP - General Nurse Practitioner 09/21/20 documented as of this encounter
[2025-07-23 10:26] LABS: Appearance Urine Clear; Glucose Urine UA Negative (Negative); PH 5.5 (5.0-9.0); Specific Gravity - Urine 1.020 (1.005-1.025); UMIC TRIGGER UACC YES
[2025-07-23 10:42] LABS: UACC Culture Trigger YES
[2025-07-23 10:47] LABS: MANUAL DIFF FLAG NO
[2025-07-23 10:58] LABS: Hematocrit 40.2 % (42.0-52.0); Hemoglobin 13.4 g/dl (14.0-18.0); Imm Gran Abs Auto 0.01 X10*3/uL (0.00-0.03); Imm Gran Pct Auto 0.2 % (0.0-0.4); Lymphocytes Absolute Auto 1.7 X10*3/uL (1.2-4.9); Mean Corpuscular HGB Conc 33.3 g/dl (31.0-36.0); Mean Corpuscular Hemoglobin 30.1 pg (27.0-33.0); Mean Corpuscular Volume 90.3 fL (80.0-98.0); NRBC Abs Auto 0.000 X10*3/uL (0.0-0.012); NRBC Pct Auto 0.0 /100WBC (0.0-0.2); Platelet Count 179 X10*3/uL (160-400); Red Blood Count 4.45 X10*6/uL (4.60-5.80); White Blood Count 6.0 X10*3/uL (4.8-10.8)
[2025-07-23 11:38] LABS: Alanine Aminotransferase 21 U/L (0-40); Albumin Level 4.5 g/dL (3.5-5.0); Alkaline Phosphatase 54 U/L (39-117); Anion Gap 13 (12-20); Aspartate Amino Transferase 27 U/L (5-37); Blood Urea Nitrogen 23 mg/dL (9-16); Calcium 9.3 mg/dL (8.4-10.2); Carbon Dioxide 26 mmol/L (22-29); Chloride 107 mmol/L (96-108); Cholesterol 138 mg/dL (<200); Estimated Glomerular Filt Rate > 60; HDL Cholesterol 66 mg/dL (>40); Potassium 4.3 mmol/L (3.3-5.1); Sodium 142 mmol/L (135-145); Total Protein 7.1 g/dL (6.5-8.0); Triglycerides 54 mg/dL (<150); Uric Acid 9.2 mg/dL (3.4-7.0)
[2025-07-23 11:49] LABS: Prostate Specific Antigen < 0.10 ng/mL (<0.05-4.0)
== END 2025-07-23 06:50 | disposition home or self-care (01) ==
LOC: HO.HMGCLDS 06:49
PROVIDERS: PCP Nurse Practitioner Family; Referring Provider Urology; Visit Provider Nurse Practitioner Family
DX: C61 Malignant neoplasm of prostate (principal); E11.9 Type 2 diabetes mellitus without complications; M1A.0710 Idiopathic chronic gout, right ankle and foot, without tophus (tophi); Z12.5 Encounter for screening for malignant neoplasm of prostate
CPT/HCPCS: 36415; 80053; 80061; 81001; 84153; 84403; 84443; 84550; 85025; 87086; 87088; 87186

== ENCOUNTER 2025-09-19 14:34 | Outpatient (AMB) | payer MEDICARE, SELFPAY ==
--- NOTE | 2025-09-19 14:44 | A.OFFVIS_ITS ---
Intake Visit Reasons: 6m/PSA/Testo Intake Note: Patient is Present for Follow Up Urology Medication: Tadalafil, Terazosin Antibiotic Allergies: None Blood Thinners: None Refinery Process Engineer Required: No Allergies No Known Allergies (No Known Allergies*) Allergy (Verified 09/19/25 14:45) HPI Comments Details: Leonor very pleasant Sammarinese male. He is a patient of Dr. Ward. He is seen for the following urologic conditions - prostate cancer - lower urinary tract symptoms - erectile dysfunction Six-month follow-up Lab work excellent Recheck testosterone in six-month Refill medications Increase dose tadalafil. Has minimal response to 5 mg daily. Try 10 mg daily with 20 mg on demand. PSA 01/06 <0.1 T 23, 06/05 <0.1 T 142, 10/06 <0.1, 02/04 <0.1, 08/07 <0.1 T 300 Lower urinary tract symptoms Urgency and frequency Nocturia x3 Progressive Prostate Cancer - unfavorable intermediate, low volume, clinically localized, Grade Group 3, GnRH 04/04 EXBRT PSA 2018 5.4 prior negative biopsy, 12/05 5.9 06/04 EXBRT with GnRH with Space Oar 01/05 - 4+3=7 (right mid medial 15%, right apex medial 70%) 3+4=7 (left apex medial 30%) 3+3=6 (left mid medial 5%) Tumor quantitation: Number cores positive: 4 Total number of cores: 12 % of tissue involved: 10% of all tissue examined Periprostatic fat inv.:Not dalia ntified Seminal vesicle inv.: Not identified Perineural inv.: Present LVI: Not identified Staging - 02/02 MRI PI-RADS 4 right apical 1 cm lesion, no evidence ARLEEN - 02/02 bone scan negative Erectile Dysfunction - background of diabetes Progressive after radiation Current therapy 10 mg daily with 20 mg on demand PFSH Medical History 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 difficile diarrhea HTN (hypertension) Anxiety JACINDA (obstructive sleep apnea) GERD (gastroesophageal reflux disease) COVID-19 Surgical History Hx of colonoscopy H/O inguinal hernia repair Hx of umbilical hernia repair History of hernia repair Family History Father No problems noted. Mother No problems noted. Sister Cancer Sister No problems noted. Brother Diabetes mellitus Brother No problems noted. Brother No problems noted. Brother No problems noted. Brother No problems noted. Daughter No problems noted. Son No problems noted. Son No problems noted. Social History Household Members: Spouse Housing: House Alcohol intake: current Alcohol intake frequency: holidays/special occasions only Alcohol type: hard liquor Patient Tobacco Use Status: Former Tobacco user Years Smoked: 20 yrs e-Cigarette/Vaping Use: Never Used Second Hand Smoke Exposure: No service: No Current occupational status: retired Cognitive needs: No Hearing needs: No Vision needs: Yes Review of Systems Const Denies chills and Denies fever(s) Card Reports no additional complaints and Denies syncope Resp Denies cough GI Denies abdominal pain and Denies heartburn Reports as per HPI and Denies change in libido Neuro Denies syncope Psych Denies change in libido Endo Denies change in libido Physical Exam Const General: cooperative, healthy appearing, comfortable and no acute distress Orientation/consciousness: patient oriented x3 HEENT Face and sinus: Yes normal facial exam Mouth: moist mucous membranes Neck Neck: Yes normal visual inspection, Yes full ROM and Yes trachea midline Chest Chest palpation & inspection: normal inspection of the chest Resp Effort & Inspection: normal respiratory effort, able to speak in complete sentences and no respiratory distress GI Inspection: Yes normal to inspection Back/Spine/Pelvis Cervical Spine: normal cervical lordosis Thoracic/Lumbar Spine: thoracic and lumbar spine normal to inspection Skin General skin exam: no rashes or lesions noted Neuro General: patient oriented x3, gait normal, tone normal and moves all extremities Extrem General: Yes normal to inspection and Yes capillary refill normal Assessment & Plan Assessment & Plan (1) Prostate cancer: Comment: 01/05 Gl 4+3, unfavorable intermediate, clinically localized Code(s): C61 - Malignant neoplasm of prostate Category: Medical (2) Erectile dysfunction: Code(s): N52.9 - Male erectile dysfunction, unspecified Category: Medical Qualifiers: Erectile dysfunction type: vasculogenic 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 While every effort has been made to ensure accuracy fabrics and material cutter errors may have been included. Imaging studies, laboratory and physical exam results were discussed and reviewed in detail. No major barriers to patient understanding were identified. An opportunity to ask questions regarding the treatment plan was provided. All questions were answered. The patient expressed understanding and agreement with the above treatment plan. The patient is aware they should contact our office by phone for worsening of their current condition or the appearance of new urologic symptoms. Compliance is encouraged with any medications and followup testing that is ordered. It is a privilege to participate in the urologic care of your patient. If you have any questions or concerns regarding treatment for the above conditions, or other urologic issues, please do not hesitate to contact me. The office telephone contact is [phone]. 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
--- OUTSIDE RECORDS SUMMARY | 2025-09-19 16:08 | XMS_ITS | Clinical Summary ---
Author Organization [facility] Address [address] [place] [address] Care Team Providers Care Mems Process Engineer Name Role Phone Gopi Gutierrez MD Primary [...] Vaccine (1 of 2) 2006 Influenza Vaccine 06/13/2025 COVID-19 Vaccine ( - 2023-2 5 season) 2025 RSV Vaccine 50 years and old er and Patients (1 - 1-dose 75+ series) 2031 Hepatitis B Vaccines Aged Out No long er eligible based on patient's age to complete this topic Insurance [facility] AETNA MGD MEDICARE Care Teams Mems Process Engineer Relationship Specialty Start Date End Date Gopi Gutierrez MD [address] [place] [address] PCP - General Family Medicine 02/17/23
--- OUTSIDE RECORDS SUMMARY | 2025-09-19 16:08 | XMS_ITS | Encounter Summary ---
Author Organization [facility] Address [address] [place] [address] Care Team Providers Care Highway Patrol Pilot Name Role Phone Gopi Gutierrez MD Primary Care Provider [phone] Encounter Details Date Type Department Care Team (Late st Contact Info) Description 03/07/2023 Scanned Document [facility] UROLOGY SCAN Talat Ambrocio MD [address] [place] [address] Social History Tobacco Use Types Packs/Day Years [...] on filedocumented in this encounter Care Teams Highway Patrol Pilot Relationship Specialty Start Date End Date Gopi Gutierrez MD [address] [facility] [place] [address] PCP - General Family Medicine 02/17/23 documented as of this encounter
== END 2025-09-19 15:22 | disposition home or self-care (01) ==
LOC: HO.HUSH 14:35
PROVIDERS: PCP Nurse Practitioner Family; Visit Provider Urology
DX: C61 Malignant neoplasm of prostate (principal); N52.03 Combined arterial insufficiency and corporo-venous occlusive erectile dysfunction
CPT/HCPCS: 99213; G2211

== ENCOUNTER → 2025-09-19 14:34 | Outpatient (BNVA) | payer MEDICARE, SELFPAY | PROVIDERS: PCP Nurse Practitioner Family; Visit Provider Urology | DX: C61 Malignant neoplasm of prostate (principal); N52.03 Combined arterial insufficiency and corporo-venous occlusive erectile dysfunction | CPT/HCPCS: 99212 ==

== ENCOUNTER 2025-09-26 11:45 | Outpatient (REF) | payer MEDICARE, SELFPAY ==
[2025-09-26 17:14] LABS: Resp Syncy Virus RNA Qual PCR NEGATIVE (Negative); SARS COV2 PCR INHOUSE NEGATIVE (Negative)
== END 2025-09-26 11:46 | disposition home or self-care (01) ==
LOC: HO.LAB 11:45
PROVIDERS: PCP Nurse Practitioner Family; Visit Provider Physician Assistant
DX: J06.9 Acute upper respiratory infection, unspecified (principal); R09.89 Other specified symptoms and signs involving the circulatory and respiratory systems; F40.243 Fear of flying; Z13.89 Encounter for screening for other disorder; Z87.891 Personal history of nicotine dependence
CPT/HCPCS: 87637; 87880; 99212

== ENCOUNTER 2025-09-26 11:45 | Outpatient (AMB) | payer MEDICARE, SELFPAY ==
--- NOTE | 2025-09-26 11:57 | AM.OFFWIN_ITS ---
Intake Vital Signs 09/26/25 11:58 Height 5 ft 11 in Weight 260 lb BMI 36.3 BP 114/76 Blood Pressure Location Rt brachial Position Sitting Pulse 94 Pulse Source Pulse Oximeter Temp 98.2 F Temp Source Oral Pulse Oximetry (%) 97 Oxygen Delivery Method Room Air Intake Visit Reasons: EP-cough, itchy throat Intake Note: EP complains of cough started two weeks ago and sore thought the day before yesterday. Patient Tobacco Use Status: Former Tobacco user Allergies No Known Allergies (No Known Allergies*) Allergy (Verified 09/26/25 12:06) Do you need a note to return to daycare/school/sports/work: No HPI HPI Comments History of Present Illness Details History - The patient is a 70-year-old male pres enting with a sore throat and cough. - The patient reports a sore throat that worsened over the past two days, with initial symptoms of coughing. - The patient has been experiencing a co ugh for a couple of weeks, which sometimes produces sputum. - He denies fevers, shortness of breath, wheezing, ear pain or sinus pain. - Anxiety related to flying: The patient experiences anxiety when flying, exacerbated after a severe COVID-19 infection. He got some medication from his PCP last time he flew and would like a refill as he is flying to [place] for his brothers next week. Review of Systems - Respiratory: Reports cough, sometimes productive. Denies wheezing or dyspnea. - ENT: Reports sore throat. Denies ear p ain or sinus pain. - Neurological: Reports balance issues p ost-COVID. Denies headaches or dizziness. All systems reviewed and are unremarkable except as noted in HPI Physical Exam General: Cooperative, healthy appearing, comfortable and no acute distress Orientation/consciousness: Patient oriented x3 Limitations: No limitations Head: Normal to inspection Ears: Hearing grossly normal bilaterally, external ears normal, EAC's normal bilaterally and TM's right with erythema, no infection Nose: Normal external nose present, Normal nares present and No nasal discharge present Face and sinus: Normal facial exam and sinuses nontender Mouth: Normal oral and palatal mucosa present and moist mucous membranes Throat: tonsils normal, no exudates, uvula midline, posterior oropharynx erythema Eyes: Appearance normal, both eyes and all related structures Neck: Normal visual inspection, full ROM Respiratory: Clear to auscultation bilaterally. Normal respiratory effort, able to speak in complete sentences, not actively coughing, no respiratory distress, not tachypneic, no tripod positioning and no use of accessory muscles Cardiovascular: Regular rate and rhythm. Normal S1 and S2 Skin: No rashes or lesions noted Neuro: Patient oriented x3 Extremities: Normal to inspection and Yes no clubbing, cyanosis or edema PFSH Medical History 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 difficile diarrhea HTN (hypertension) Anxiety JACINDA (obstructive sleep apnea) GERD (gastroesophageal reflux disease) COVID-19 Surgical History Hx of colonoscopy H/O inguinal hernia repair Hx of umbilical hernia repair History of hernia repair Family History Father No problems noted. Mother No problems noted. Sister Cancer Sister No problems noted. Brother Diabetes mellitus Brother No problems noted. Brother No problems noted. Brother No problems noted. Brother No problems noted. Daughter No problems noted. Son No problems noted. Son No problems noted. Social History Household Members: Spouse Housing: House Alcohol intake: current Alcohol intake frequency: holidays/special occasions only Alcohol type: hard liquor Patient Tobacco Use Status: Former Tobacco user Years Smoked: 20 yrs e-Cigarette/Vaping Use: Never Used Second Hand Smoke Exposure: No service: No Current occupational status: retired Cognitive needs: No Hearing needs: No Vision needs: Yes Physical Exam Vital Signs: Last Vital Signs Temp 98.2 F 09/26/25 11:58 Pulse 94 09/26/25 11:58 BP 114/76 09/26/25 11:58 Pulse Ox 97 09/26/25 11:58 Oxygen Delivery Method Room Air 09/26/25 11:58 BMI result Body Mass Index 36.3 Results AMB Rapid Strep AMB Rapid Strep Negative Last Edit by Bonnie Barnes MA on 09/26/25 12:23 Assessment & Plan Assessment & Plan (1) URI, acute: Code(s): J06.9 - Acute upper respiratory infection, unspecified Plan: Plan Patient was informed and verbally consented to the use of an ambient scribe for clinic note documentation during this visit. - VSS, pt well appearing and PE unremarkable. - The patient was tested for strep throat, which returned negative. Recommended symptomatic treatment with honey, hot tea, and ibuprofen for pain relief. - Covid, Flu and RSV testing was sent. - A cough suppressant was prescribed for nighttime use to aid sleep. Mucinex and an allergy pill were recommended to help with mucus clearance. - Observation and symptomatic management were advised, as no acute intervention was deemed necessary at this time. 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 Orders: Orders SARS-CoV2/FLU/RSV Today R09.89 - Other specified symptoms and signs involving the circulatory and respiratory systems AMB Rapid Strep Screen Today Z13.9 - Encounter for screening, unspecified Medications: New benzonatate 200 mg PO BEDTIME PRN 10 caps 0RF cough Refilled alprazolam take 45 minutes before flight 1 mg PO BID PRN 8 tabs 0RF anxiety 4 days Coding Level of Care Code Est Pt Level 4 (84293) Diagnoses URI, acute J06.9 Fear of flying F40.243
[2025-09-26 11:58] VITALS: BP 114/76; PULSE 94; TEMP 36.8; O2SAT 97; BMI 36.3
== END 2025-09-26 12:36 | disposition home or self-care (01) ==
PROVIDERS: PCP Nurse Practitioner Family; Visit Provider Physician Assistant
DX: J06.9 Acute upper respiratory infection, unspecified (principal); F40.243 Fear of flying; Z13.9 Encounter for screening, unspecified